=== PATIENT | female | born 1955 | race Caucasian/White ===

== ENCOUNTER → 2018-05-18 14:02 | Outpatient (REF) | payer OTHER, SELFPAY | LOC: LAB 14:02 | PROVIDERS: Visit Provider Dermatology MOHS-Micrographic Surgery | DX: Z48.817 Encounter for surgical aftercare following surgery on the skin and subcutaneous tissue (principal) | CPT/HCPCS: 87070; 87077; 87205 ==

== ENCOUNTER 2018-11-30 07:55 | Day surgery (SDC) | payer OTHER, SELFPAY ==
[2018-11-30] VITALS (7 sets, daily range): BP systolic 106–127; BP diastolic 52–82; PULSE 78–92; RESP 12–23; TEMP 36.1–37; O2SAT 91–97; BMI 38.1
[2018-11-30] MEDS: SODIUM CHLORIDE 0.9% 1,000 ML 200 ML IV (08:52)
--- NOTE | 2018-11-30 09:12 | PM.HP.1 ---
History of Present Illness Date Patient Seen: 11/30/18 Time Patient Seen: 09:12 Chief complaint: [id number] Narrative: 63-YEAR-OLD WOMAN PRESENTS PRESENTS FOR SCREENING COLONOSCOPY-known personal history of colon polyps last colonoscopy 7 years ago, 2 years overdue In addition she had a episode of what was felt to be acute diverticulosis 2 years ago -she did not have her subsequent recommended diagnostic colonoscopy following Does report some occasional left upper quadrant pain No family history of colon or rectal cancer Patient History Medical History (Updated 11/30/18 @ 08:30 by Dell Sommers) Anxiety (Acute) Depression (Acute) Diabetes mellitus, type II (Acute) Diverticulitis (Acute) Frequency of urination (Acute) GERD (gastroesophageal reflux disease) (Acute) History of ectopic (Acute) History of hysterectomy (Acute) Lung collapse (Acute) Seizure (Acute) Skin cancer (Acute) Social History household members: spouse Family & Social History Social History: household members spouse Meds Home Medications Medication Instructions Recorded Confirmed Type metformin 1,000 mg PO BID 11/29/18 11/29/18 History aspirin [Aspir-81] 81 mg PO DAILY 11/30/18 11/30/18 History cholecalciferol (vitamin D3) 125 mcg PO DAILY 11/30/18 11/30/18 History [Vitamin D3] docusate calcium 240 mg PO DAILY 11/30/18 11/30/18 History dulaglutide [Trulicity] 1.5 mg SUBCUT QWEEK 11/30/18 11/30/18 History omeprazole 20 mg PO DAILY 11/30/18 11/30/18 History simvastatin 40 mg PO QPM 11/30/18 11/30/18 History Allergies Allergy/AdvReac Type Severity Reaction Status Date / Time No Known Drug Allergies Allergy Verified 11/30/18 08:25 Review of Systems Constitutional Constitutional: Denies fever(s) Eyes Eyes: Denies bulging eyes ENT Ears, Nose, Mouth, and Throat: No lip swelling Cardiovascular Cardiovascular: Denies generalize swelling Respiratory Respiratory: Denies stridor Gastrointestinal Gastrointestinal: Denies coffee ground emesis Musculoskeletal Musculoskeletal: Denies loss of height Integumentary/Breasts Skin/Breast: Denies wounds Neurologic Neurologic: Denies abnormal speech and Denies confusion Psychiatric Psychiatric: Denies confusion Endocrine Endocrine: Denies deepening of the voice Hematologic/Lymphatic Hematologic/Lymphatic: Denies lymphadenopathy Allergic/Immunologic Allergic/Immunologic: Denies lip swelling Exam Vital Signs (past 8 hours): - 11/30/18 08:32 Temperature 97.8 F Pulse Rate 92 H Respiratory Rate 16 Blood Pressure 127/78 Pulse Oximetry 97 Oxygen Delivery Method Room Air Const General: cooperative and healthy appearing Orientation: alert HENOR Head: normal to inspection Nose: nares normal Mouth: oral mucosae normal and lip normal Eyes Eyelids: eyelids normal Conjunctivae: conjunctivae normal Sclera: sclerae normal Neck Neck: supple and other (No thyromegally) Chest Chest: other (LCTAB , regular respiratory effort) Cardio Rhythm: regular rhythm Heart Sounds: S1 normal, S2 normal, no gallops, no murmurs and no rubs GI Other: Abdomen soft nontender nondistended, low midline incision for hysterectomy Skin General: no rashes or lesions noted Neuro General: alert and awake Psych Appearance: grossly normal Affect: normal affect Assessment & Plan Assessment & Plan narrative: 63-year-old woman overdue for screening colonoscopy Risks and benefits of procedure is discussed including risk of , perforation, incomplete colonoscopy, hypoxia, missed lesions All questions answered Patient ready to proceed
--- NOTE | 2018-11-30 09:17 | SUR.OPER ---
dentures and glasses in labeled containers to pacu with patient
[2018-11-30] MEDS: MIDAZOLAM 5 MG/5 ML VIAL IV (09:32)
[2018-11-30] MEDS: fentaNYL 250 MCG/5 ML INJ IV (09:33)
--- NOTE | 2018-11-30 09:47 | PM.OP.ENDO ---
Operative Date/Time/Diagnoses Date of procedure: 11/30/18 Time of procedure: 09:47 Post-op diagnosis: same Procedure & Clinicians Study performed: Screening colonoscopy-complete Same procedure as scheduled: Yes Indications: 63-year-old woman presents 2 years overdue from last screening, personal history of colon polyps -last screening colonoscopy 7 years Surgeon: Magdi Easton Procedure Notes SCOAP/Timeout: Completed Procedure in detail: Patient was taken to the endoscopy suite a time-out was completed. She was sedated over the entire course of the procedure with 6 mg of midazolam and 50 micro g of fentanyl. A digital rectal exam was performed without lesions. 160 cm colonoscope was then introduced up the anus and passed through folds of the rectum and colon without difficulty. The cecum was reached this was identified via prominent ileocecal valve as well as and appendiceal orifice. The scope was then slowly withdrawn inspecting the mucosal surfaces. There was scattered diverticuli in the right transverse and sigmoid colon, no active inflammation. At the level of distal rectum the scope was retroflexed. No additional mucosal lesions were identified Prep was adequate Scope withdrawal time: 9 Sedation minutes: 27 Specimen(s): none sent Complications: none Impression: Scattered diverticulosis of the right, transverse and sigmoid colon Recommendations: Colonscopy in 5 years Plan for aftercare: PACU then home Follow up: as needed Disposition: PACU
== END 2018-11-30 10:36 | disposition home or self-care (01) ==
PROVIDERS: PCP Internal Medicine; Visit Provider Surgery
PROC: 0DJD8ZZ Inspection of Lower Intestinal Tract, Via Natural or Artificial Opening Endoscopic (ICD-10-PCS; CPT 45378; principal; 2018-11-30 09:15)
DX: Z86.010 Personal history of colon polyps (principal); K57.30 Diverticulosis of large intestine without perforation or abscess without bleeding; F32.9 Major depressive disorder, single episode, unspecified; F41.9 Anxiety disorder, unspecified; E11.9 Type 2 diabetes mellitus without complications; K21.9 Gastro-esophageal reflux disease without esophagitis; Z85.828 Personal history of other malignant neoplasm of skin
CPT/HCPCS: G0105; 99152; J2250; J3010

== ENCOUNTER → 2020-05-01 10:35 | Outpatient (CLI) | payer MEDICARE, OTHER, SELFPAY ==
[2020-05-01] MEDS: COVID-19 VACC #1, MRNA(MOD) 100 MCG/0.5 ML VIAL IM (10:42)
== END ==
PROVIDERS: PCP Registered Nurse Diabetes Educator; Visit Provider Internal Medicine
DX: Z23 Encounter for immunization (principal)
CPT/HCPCS: 0011A; 91301

== ENCOUNTER → 2020-05-25 08:54 | Outpatient (CLI) | payer MEDICARE, OTHER, SELFPAY ==
[2020-05-25 09:52] LABS: Hematocrit 37.2 % (36-46); Hemoglobin 12.5 g/dL (12.0-16.0); Mean Corpuscular HGB Conc 33.7 % (30-36); Mean Corpuscular Hemoglobin 26.9 PG (26-34); Platelet Count 396 X10^3/uL (150-400); Red Blood Cell Count 4.66 X10^6/uL (4.0-5.2); Red Cell Distribution Width 15.6 % (11.6-14.8); White Blood Cell Count 8.1 X10^3/uL (4.5-11.0)
[2020-05-25 10:02] LABS: Hemoglobin A1C% w Est Avg Glu 5.5 % (4.0-6.0)
[2020-05-25 10:07] LABS: Alanine Aminotransferase 22 IU/L (<35); Albumin 4.2 g/dL (3.5-5.0); Albumin Globulin Ratio 1.2 (1.0-2.8); Alkaline Phosphatase 73 U/L (38-126); Aspartate Aminotransferase 24 IU/L (14-36); BUN Creatinine Ratio 36.2 (6-22); Bilirubin Total 0.3 mg/dL (0.2-1.3); Blood Urea Nitrogen 25 mg/dL (7-17); Calcium 9.8 mg/dL (8.4-10.2); Carbon Dioxide 34 mmol/L (22-32); Chloride 102 mmol/L (98-107); Cholesterol 209 mg/dL (140-199); Estimated Glomerular Filt Rate > 60.0 mL/min (>60); Globulin 3.4 g/dL (1.7-4.1); Glucose 113 mg/dL (80-110); HDL Cholesterol 36 mg/dL (40-60); HEMOLYSIS < 15 (0-50); LDL Cholesterol Calculated 133 mg/dL (<100); Potassium 3.7 mmol/L (3.4-5.1); Sodium 141 mmol/L (137-145); Total Protein 7.6 g/dL (6.3-8.2); Triglycerides 198 mg/dL (35-150)
[2020-05-25 10:26] LABS: Creatinine Urine Random 68.6 mg/dL
[2020-05-25 10:31] LABS: Microalbumin Urine Random 1.1 mg/dL (0-1.6)
[2020-05-25 10:56] LABS: TSH w/ Reflex to FT4 2.36 uIU/mL (0.47-4.68)
== END ==
PROVIDERS: PCP Registered Nurse Diabetes Educator; Referring Provider Registered Nurse Diabetes Educator; Visit Provider Registered Nurse Diabetes Educator
DX: E11.9 Type 2 diabetes mellitus without complications (principal); E78.5 Hyperlipidemia, unspecified; R03.0 Elevated blood-pressure reading, without diagnosis of hypertension
CPT/HCPCS: 36415; 80053; 80061; 82043; 82570; 83036; 84443; 85027

== ENCOUNTER → 2020-05-29 10:35 | Outpatient (CLI) | payer MEDICARE, OTHER, SELFPAY ==
[2020-05-29] MEDS: COVID-19 VACC #2, MRNA(MOD) 100 MCG/0.5 ML VIAL IM (10:43)
== END ==
PROVIDERS: PCP Registered Nurse Diabetes Educator; Visit Provider Internal Medicine
DX: Z23 Encounter for immunization (principal)
CPT/HCPCS: 0012A; 91301

== ENCOUNTER → 2020-08-27 10:26 | Outpatient (CLI) | payer MEDICARE, OTHER, SELFPAY | PROVIDERS: PCP Registered Nurse Diabetes Educator; Referring Provider Registered Nurse Diabetes Educator; Visit Provider Registered Nurse Diabetes Educator | DX: Z78.0 Asymptomatic menopausal state (principal); Z13.820 Encounter for screening for osteoporosis; M85.88 Other specified disorders of bone density and structure, other site; E11.9 Type 2 diabetes mellitus without complications | CPT/HCPCS: 77080 ==

== ENCOUNTER → 2020-09-02 17:38 | Outpatient (CLI) | payer MEDICARE, OTHER, SELFPAY ==
--- NOTE | 2020-09-02 17:42 | DI.MG.S_ITS ---
BILATERAL DIGITAL SCREENING MAMMOGRAM 3D/2D WITH CAD: 09/02/2020 CLINICAL: Routine screening. Comparison is made to exams dated: 08/25/2018 mammogram, 09/15/2014 mammogram, and 07/25/2011 mammogram - outside location. There are scattered fibroglandular elements in both breasts. Current study was also evaluated with a Computer Aided Detection (CAD) system. No significant masses, calcifications, or other findings are seen in either breast. There has been no significant interval change. IMPRESSION: NEGATIVE There is no mammographic evidence of malignancy. A 1 year screening mammogram is recommended. This exam was interpreted at Station ID: [id number]. NOTE: For mammograms, a report in lay terms will be sent to the patient. Approximately 15% of breast malignancies will not be visualized mammographically. In the management of a palpable breast mass, a negative mammogram must not discourage biopsy of a clinically suspicious lesion. Electronically Signed By: Quentin mendoza/jarrell:09/03/2020 08:05:10 letter sent: Normal Exam ACR BI-RADS Category 1: Negative [id number]
== END ==
PROVIDERS: PCP Registered Nurse Diabetes Educator; Referring Provider Registered Nurse Diabetes Educator; Visit Provider Registered Nurse Diabetes Educator
DX: Z12.31 Encounter for screening mammogram for malignant neoplasm of breast (principal)
CPT/HCPCS: 77063; 77067

== ENCOUNTER → 2020-09-16 09:06 | Outpatient (CLI) | payer MEDICARE, OTHER, SELFPAY ==
[2020-09-16 10:32] LABS: Hemoglobin A1C% w Est Avg Glu 5.4 % (4.0-6.0)
[2020-09-16 10:37] LABS: Cholesterol 158 mg/dL (140-199); HDL Cholesterol 34 mg/dL (40-60); LDL Cholesterol Calculated 98 mg/dL (<100); Triglycerides 132 mg/dL (35-150)
== END ==
PROVIDERS: PCP Registered Nurse Diabetes Educator; Referring Provider Registered Nurse Diabetes Educator; Visit Provider Registered Nurse Diabetes Educator
DX: E11.9 Type 2 diabetes mellitus without complications (principal); E78.5 Hyperlipidemia, unspecified
CPT/HCPCS: 36415; 80061; 83036

== ENCOUNTER → 2020-12-23 10:13 | Outpatient (CLI) | payer MEDICARE, OTHER, SELFPAY ==
[2020-12-23 11:37] LABS: Hemoglobin A1C% w Est Avg Glu 5.4 % (4.0-6.0)
== END ==
PROVIDERS: PCP Registered Nurse Diabetes Educator; Referring Provider Registered Nurse Diabetes Educator; Visit Provider Registered Nurse Diabetes Educator
DX: E11.9 Type 2 diabetes mellitus without complications (principal)
CPT/HCPCS: 36415; 83036

== ENCOUNTER → 2020-12-30 06:27 | Outpatient (CLI) | payer MEDICARE, OTHER, SELFPAY ==
--- NOTE | 2020-12-30 06:28 | DI.MRI.S_ITS ---
PROCEDURE: MR ANGIO HEAD WO CON INDICATIONS: Eval vertigo/concern for central TECHNIQUE: Noncontrast axial 3-D [id number] MR angiogram, with 3-dimensional maximum intensity projection (MIP) reformats of the internal carotid arteries and posterior circulation then performed. COMPARISON: None. FINDINGS: Image quality: Excellent. Anterior circulation: Intracranial internal carotid arteries demonstrate normal size and intraluminal flow signal. The flow within the paired anterior cerebral arteries is normal and symmetric. The flow within the middle cerebral arteries is normal and symmetric. The anterior communicating artery is seen. No stenoses, occlusions, or aneurysms. Posterior circulation: Visualized portions of the vertebral arteries demonstrate normal caliber, and join to form a normal appearing basilar artery. The flow within the posterior cerebral arteries is normal and symmetric. No stenoses, occlusions, or aneurysms. IMPRESSION: Normal cerebral MR angiogram. Dictated by: Keiko Calix M.D. on 12/30/2020 at 8:01 Approved by: Keiko Calix M.D. on 12/30/2020 at 8:02
--- NOTE | 2020-12-30 06:28 | DI.MRI.S_ITS ---
PROCEDURE: MR BRAIN (IAC) WWO CON INDICATIONS: eval vertigo/concern for central cause or acoustic neuroma TECHNIQUE: Noncontrast sagittal T1 spin echo, axial FLAIR, axial gradient echo, axial diffusion and ADC through the brain. Axial thin-slice 3D CISS, coronal TruFISP, axial T1 spin echo with fat saturation through the internal auditory canals. After the administration of contrast, thin slice axial and coronal T1 spin echo with fat saturation through the internal auditory canals, and axial T1 spin echo with fat saturation through the brain. COMPARISON: [facility], CT, CT BRAIN WO CON, 01/15/2016, 9:02. FINDINGS: Image quality: Excellent. Cerebellopontine angles: No cerebellopontine angle masses. Inner ear structures appear normally formed. No suspicious enhancement in the internal auditory canal or along the course of the 7th cranial nerve. CSF spaces: Ventricles are normal in size and shape. No extra-axial fluid collections. Basal cisterns are patent. Brain: No intracranial bleeds or mass effects. There are a few foci of T2 hyperintensity in periventricular white matter. Parrish-white matter interface is intact. No abnormal intracranial enhancement. Diffusion weighted images demonstrate no acute ischemic insults. Brainstem appears normal. Normal intravascular flow voids are present. Skull and face: Calvarial marrow signal is normal. Orbits appear normal. Sinuses: Sinuses and mastoids are clear. IMPRESSION: 1. No acute intracranial abnormalities. No acoustic schwannoma is identified. A cause for the vertigo is not identified. 2. A few foci of T2 hyperintensity in periventricular white matter, compatible with mild chronic microvascular ischemic changes. Dictated by: Keiko Calix M.D. on 12/30/2020 at 8:02 Transcribed by: NOMRA on 12/30/2020 at 8:03 Approved by: Keiko Calix M.D. on 12/30/2020 at 9:44
== END ==
PROVIDERS: PCP Registered Nurse Diabetes Educator; Referring Provider Registered Nurse Diabetes Educator; Visit Provider Registered Nurse Diabetes Educator
DX: R42 Dizziness and giddiness (principal)
CPT/HCPCS: 70544; 70553

== ENCOUNTER → 2021-05-15 09:04 | Outpatient (CLI) | payer MEDICARE, OTHER, SELFPAY ==
[2021-05-15 10:27] LABS: Hematocrit 38.1 % (36-46); Hemoglobin 13.3 g/dL (12.0-16.0); Mean Corpuscular HGB Conc 34.9 % (30-36); Mean Corpuscular Hemoglobin 28.7 PG (26-34); Mean Corpuscular Volume 82.3 fL (80-100); Platelet Count 344 X10^3/uL (150-400); Red Blood Cell Count 4.63 X10^6/uL (4.0-5.2); Red Cell Distribution Width 14.6 % (11.6-14.8); White Blood Cell Count 6.1 X10^3/uL (4.5-11.0)
[2021-05-15 10:54] LABS: Hemoglobin A1C% w Est Avg Glu 5.5 % (4.0-6.0)
[2021-05-15 11:05] LABS: Alanine Aminotransferase 34 IU/L (<35); Albumin 4.2 g/dL (3.5-5.0); Albumin Globulin Ratio 1.4 (1.0-2.8); Alkaline Phosphatase 86 U/L (38-126); Aspartate Aminotransferase 27 IU/L (14-36); BUN Creatinine Ratio 37.1 (6-22); Bilirubin Total 0.7 mg/dL (0.2-1.3); Blood Urea Nitrogen 23 mg/dL (7-17); Calcium 9.9 mg/dL (8.4-10.2); Carbon Dioxide 35 mmol/L (22-32); Chloride 103 mmol/L (98-107); Cholesterol 143 mg/dL (140-199); Estimated Glomerular Filt Rate > 60.0 mL/min (>60); Globulin 2.9 g/dL (1.7-4.1); Glucose 96 mg/dL (80-110); HDL Cholesterol 36 mg/dL (40-60); HEMOLYSIS < 15 (0-50); LDL Cholesterol Calculated 81 mg/dL (<100); Potassium 4.3 mmol/L (3.4-5.1); Sodium 141 mmol/L (137-145); Total Protein 7.1 g/dL (6.3-8.2); Triglycerides 130 mg/dL (35-150)
[2021-05-15 11:35] LABS: TSH w/ Reflex to FT4 1.85 uIU/mL (0.47-4.68)
[2021-05-15 12:05] LABS: Creatinine Urine Random 83.5 mg/dL
[2021-05-15 12:11] LABS: Microalbumin Urine Random < 0.6 mg/dL (0-1.6)
[2021-05-16 10:07] LABS: Hepatitis B Surf Ab Qualitativ Non Reactive (.)
== END ==
PROVIDERS: PCP Registered Nurse Diabetes Educator; Referring Provider Registered Nurse Diabetes Educator; Visit Provider Registered Nurse Diabetes Educator
DX: E11.9 Type 2 diabetes mellitus without complications (principal); E78.5 Hyperlipidemia, unspecified
CPT/HCPCS: 36415; 80053; 80061; 82043; 82570; 83036; 84443; 85027; 86706

== ENCOUNTER 2021-07-31 18:25 | Emergency (ER) | payer MEDICARE, OTHER, SELFPAY ==
[2021-07-31 18:53] VITALS: BP 136/71; PULSE 83; RESP 20; TEMP 37.7; O2SAT 100; BMI 22.6
--- NOTE | 2021-07-31 19:00 | DI.RAD.S_ITS ---
PROCEDURE: XR HUMERUS RT 2V INDICATIONS: fall TECHNIQUE: 3 views of the humerus were acquired. COMPARISON: None. FINDINGS: Bones: There is a comminuted humeral head and neck fracture with mild displacement and angulation. No suspicious bony lesions. Soft tissues: No suspicious soft tissue calcifications. IMPRESSION: Comminuted humeral head and neck fracture. Dictated by: Keiko Calix M.D. on 07/31/2021 at 19:27 Approved by: Keiko Calix M.D. on 07/31/2021 at 19:27
--- NOTE | 2021-07-31 20:08 | ED_ITS ---
HPI - General Adult General Chief complaint: Extremity Injury, Upper Stated complaint: fell and injured rt arm Time Seen by Provider: 07/31/21 19:40 Source: patient Mode of arrival: Family Vehicle History of Present Illness HPI narrative: 66-year-old female who is here for evaluation of right shoulder/arm discomfort. She is also having bruising in her right shoulder. She states she sustained an injury yesterday when she fell. Was out shopping with her . Not 100% sure the exact circumstances of the fall but she thinks that she lost her balance and fell over. She has had issues with balance in the past and she did not know whether not that attribute it to the issues today. She put her arm out so that she did not hit her head. Has had pain in her right shoulder since then. Bruising her right upper arm which has worsened over the past 24 hours. She sustained some abrasions to her hands but otherwise no other injuries from the event. Related Data Home Medications Medication Instructions Recorded Confirmed cholecalciferol (vitamin D3) 10 125 mcg PO DAILY 11/30/18 09/22/20 mcg (400 unit) tablet (Vitamin D3) magnesium oxide 400 mg PO DAILY 09/22/20 09/22/20 Previous Rx's Medication Instructions Recorded blood-glucose meter (FreeStyle #1 ea 06/22/20 [place] Lite) ibuprofen 800 mg tablet 800 mg PO TID PRN #30 tab 09/28/20 lancets 28 gauge (FreeStyle #100 ea 05/18/21 Lancets) amitriptyline 10 mg tablet 10 mg PO BEDTIME PRN #30 tab 05/25/21 aspirin 81 mg tablet,delayed 81 mg PO DAILY #90 tab 05/25/21 release atorvastatin 40 mg tablet 40 mg PO BEDTIME #90 tab 05/25/21 dulaglutide 0.75 mg/0.5 mL 0.75 mg (0.5 mL) SUBCUT QWEEK #6 ml 05/25/21 subcutaneous pen injector (Trulicity) hepatitis B virus vacc.rec(PF) 10 10 mcg IM ONCE #1 ml 05/25/21 mcg/mL intramuscular susp (Recombivax HB (PF)) lancets 33 gauge #100 each 05/25/21 metformin 1,000 mg tablet,extended 1,000 mg PO DAILY #90 tab 05/25/21 release 24hr omeprazole 20 mg tablet,delayed 20 mg PO DAILY #90 tab 05/25/21 release pneumococcal 23-gil ps vaccine 25 0.5 ml IM ONCE #0.5 ml 05/25/21 mcg/0.5 mL injection solution (Pneumovax-23) test strips #100 ea 05/25/21 varicella-zoster glycoE vacc-AS01B 0.5 ml IM ONCE #1 ea 05/25/21 adj(PF) 50 mcg/0.5 mL IM susp, kit (Shingrix (PF)) hydrocodone 5 mg-acetaminophen 325 1 tab PO Q4-6H PRN #20 tab 07/31/21 mg tablet Allergies Allergy/AdvReac Type Severity Reaction Status Date / Time No Known Drug Allergies Allergy Verified 07/31/21 18:59 Review of Systems Constitutional Constitutional: Reports system reviewed and no additional complaints, except as documented ENT Ears, Nose, Mouth, and Throat: Reports system reviewed and no additional complaints, except as documented Musculoskeletal Musculoskeletal: Reports system reviewed and no additional complaints, except as documented and Reports as per HPI Integumentary/Breasts Skin/Breast: Reports system reviewed and no additional complaints, except as documented and Reports as per HPI Neurologic Neurologic: Reports system reviewed and no additional complaints, except as documented and Reports as per HPI Hematologic/Lymphatic On Anticoagulants: No Patient History Medical History Anxiety Depression Diabetes mellitus, type II Diverticulitis Dyslipidemia Elevated BP without diagnosis of hypertension Frequency of urination GERD (gastroesophageal reflux disease) History of ectopic Insomnia Lung collapse Melanoma Osteopenia Seizure Skin cancer Surgical History History of hysterectomy Social History household members: spouse Smoking Status: Former smoker Smoking Status: Former smoker tobacco type: cigarettes alcohol intake frequency: 0-2 drinks per day Substance Use Type: does not use Exam Initial Vital Signs Initial Vital Signs: Vital Signs Temperature 99.9 F H 07/31/21 18:53 Pulse Rate 83 07/31/21 18:53 Respiratory Rate 20 07/31/21 18:53 Blood Pressure 136/71 07/31/21 18:53 Pulse Oximetry 100 07/31/21 18:53 HENMT Head: normal to inspection and normocephalic Cardio Pulses: radial pulses present on the right Skin Other: Significant bruising on the medial aspect of the right upper arm months extends to her elbow. Superficial abrasions to bilateral palms of hands. Extrem Other: Patient's right elbow and right wrist unremarkable. Discomfort with any movement of the right shoulder. Procedures Orthopedic Splinting/Casting Injury #1: Side: right Upper Extremity Injury Location: shoulder Upper Extremity Immobilizer: sling/shoulder immobilizer Post splinting neuro exam: intact Post splinting vascular exam: intact Placed by: Nursing Course Orders Ordered: ED Orders 07/31/21 19:00 XR humerus RT 2V Stat Discontinued Medications Hydrocodone Bitart/Acetaminophen (Hydrocodone/Acet 5/325 Tablet) 1 tab PO NOW ONE Stop: 07/31/21 20:09 Last Admin: 07/31/21 20:14 Dose: 1 tab Documented by: PRIYANKA Hydrocodone Bitart/Acetaminophen (Hydrocodone/Acet 5/325 Prepack) 1 bottle MISC SEEINSTR ONE Stop: 07/31/21 20:09 Last Admin: 07/31/21 20:14 Dose: 1 bottle Documented by: PRIYANKA Vital Signs Vital signs: Vital Signs - 8 hr 07/31/21 18:53 Temperature 99.9 F H Pulse Rate 83 Respiratory Rate 20 Blood Pressure 136/71 Pulse Oximetry 100 Medical Decision Making Imaging Data Extremity x-ray #1: Radiologist's Impression: [place] [address] XRay Report Signed Patient: Lucrecia Cherry MR#: [id number] : 1955 Acct:[id number] Age/Sex: 66 / F Date of Service: 07/31/21 Loc: ED Accession Number: [id number] ?? Procedure: XR humerus RT 2V Ordering Provider: Raimundo Dove D.O. PROCEDURE:? XR HUMERUS RT 2V ? INDICATIONS:? fall ? TECHNIQUE:? 3 views of the humerus were acquired.? ? COMPARISON:? None. ? FINDINGS:? ? Bones:? There is a comminuted humeral head and neck fracture with mild displacement and angulation.? No suspicious bony lesions.? ? Soft tissues:? No suspicious soft tissue calcifications.? ? IMPRESSION:? Comminuted humeral head and neck fracture. ? ? Dictated by: Keiko Calix M.D. on 07/31/2021 at 19:27 ? ? Approved by: Keiko Calix M.D. on 07/31/2021 at 19:27?? MDM Narrative Medical decision making narrative: Neurovascularly intact. Does have a comminuted proximal right humerus fracture. Patient was placed in a sling. Was given care instructions and return precautions. She was also given follow-up instructions with Orthopedics. She expressed understanding and agreement. Discharge Plan Departure Patient Disposition: Home Clinical Impression: Fracture, humerus Instructions: How to Use a Sling, Humeral Shaft Fracture Activity Restrictions/Additional Instructions: I do recommend that you contact the orthopedic providers at the number below for a follow-up. The sling is for your comfort. You can take it off to get dressed and 2 shower. I would not be surprised if you continue to have bruising like we discussed. Contact your primary provider for follow-up as well. Return to the emergency department for any new or worsening symptoms. Prescriptions: New hydrocodone-acetaminophen 5-325 mg tablet 1 tab PO Q4-6H PRN (Reason: pain) Qty: 20 0RF No Action ibuprofen 800 mg tablet 800 mg PO TID PRN (Reason: pain) Qty: 30 2RF (DME) lancets [FreeStyle Lancets] 28 gauge misc See Rx Instructions .Route Qty: 100 3RF Rx Instructions: As directed magnesium oxide 400 mg magnesium capsule 400 mg PO DAILY 0RF (DME) blood-glucose meter [FreeStyle [place] Lite] Kit See Rx Instructions .ROUTE .MEDSUPPLY Qty: 1 0RF Rx Instructions: As directed flu vacc [id number](65yr up)-PF 240 mcg/0.7 mL syringe 0.7 ml IM ONCE Qty: 0.7 0RF aspirin 81 mg tablet,delayed release (DR/EC) 81 mg PO DAILY Qty: 90 3RF atorvastatin 40 mg tablet 40 mg PO BEDTIME Qty: 90 3RF Trulicity 0.75 mg/0.5 mL pen injector 0.75 mg SUBCUT QWEEK Qty: 6 3RF (DME) lancets 33 gauge misc See Rx Instructions .ROUTE .MEDSUPPLY Qty: 100 3RF Rx Instructions: use to test blood sugar once daily metformin 1,000 mg tablet extended release 24hr 1,000 mg PO DAILY Qty: 90 3RF omeprazole 20 mg tablet,delayed release (DR/EC) 20 mg PO DAILY Qty: 90 3RF (DME) test strips See Rx Instructions .Route .MEDSUPPLY Qty: 100 3RF Rx Instructions: As directed to check blood sugar once daily amitriptyline 10 mg tablet 10 mg PO BEDTIME PRN (Reason: sleep) Qty: 30 2RF Rx Instructions: After 1 week if ineffective may increase to 2 tabs at bedtime Pneumovax-23 25 mcg/0.5 mL solution 0.5 ml IM ONCE Qty: 0.5 0RF Rx Instructions: as a single dose Recombivax HB (PF) 10 mcg/mL suspension 10 mcg IM ONCE Qty: 1 2RF Rx Instructions: 1 mL/dose (adult formulation) as part of 3-dose series administered at 0, 1, and 6 months. Shingrix (PF) 50 mcg/0.5 mL suspension for reconstitution 0.5 ml IM ONCE Qty: 1 1RF Rx Instructions: 0.5 mL administered as a 2-dose series at 0 and 2 to 6 months cholecalciferol (vitamin D3) [Vitamin D3] 400 unit Tablet 125 mcg PO DAILY 0RF Referrals: Dell Calhoun ARNP [Primary Care Provider] - Monica Billingsley MD [Physician] -
[2021-07-31] MEDS: HYDROCODONE/ACET 5/325 TABLET 1 TAB PO (20:14)
[2021-07-31] MEDS: HYDROCODONE/ACET 5/325 PREPACK 1 BOTTLE MISC (20:14)
== END 2021-07-31 20:51 | disposition home or self-care (01) ==
PROVIDERS: Emergency Provider Emergency Medicine; PCP Registered Nurse Diabetes Educator
DX: S42.291A Other displaced fracture of upper end of right humerus, initial encounter for closed fracture (principal); Z87.891 Personal history of nicotine dependence; W19.XXXA Unspecified fall, initial encounter; Y93.89 Activity, other specified
CPT/HCPCS: 73060; 99283

== ENCOUNTER → 2021-08-09 14:14 | Outpatient (CLI) | payer MEDICARE, OTHER, SELFPAY ==
--- NOTE | 2021-08-09 14:24 | DI.CT.S_ITS ---
PROCEDURE: CT UE RT WO CON INDICATIONS: right humerus fracture TECHNIQUE: Noncontrast 1-1.5 mm thick sections acquired from the acromioclavicular joint to the inferior scapula, with coronal and sagittal reformatting. COMPARISON: [facility], CR, XR HUMERUS RT 2V, 07/31/2021, 18:53. FINDINGS: Image quality: Excellent. Bones: As seen on previous shoulder/humeral radiograph, there is comminuted fracture involving surgical neck/proximal shaft of right humerus with proximal and medial displacement of proximal humeral shaft and up to 5 millimeter overlapping at fracture site. Fracture lines are seen extending to both greater and lesser tuberosities with anterior and laterally displaced fractured greater tuberosity fragments. No other fracture or dislocation is seen. Soft tissues: Soft tissue swelling surrounding proximal humeral fracture site is seen with small joint effusion. No abnormal soft tissue calcifications are seen. No gross full-thickness rotator cuff tendon rupture. No significant muscle atrophy. No axillary lymphadenopathy. IMPRESSION: 1. Acute comminuted, impacted and displaced proximal humeral shaft/surgical neck fracture extending to involve both greater and lesser tuberosities with displaced fractured fragments as above. 2. Soft tissue swelling surrounding proximal humeral fracture site. Small joint effusion. No abnormal soft tissue calcifications. No full-thickness rotator cuff tendon rupture. Dictated by: Rupesh Harrison M.D. on 08/09/2021 at 14:59 Approved by: Rupesh Harrison M.D. on 08/09/2021 at 15:08
== END ==
PROVIDERS: PCP Registered Nurse Diabetes Educator; Referring Provider Registered Nurse Diabetes Educator; Visit Provider Registered Nurse Diabetes Educator
DX: S42.351A Displaced comminuted fracture of shaft of humerus, right arm, initial encounter for closed fracture (principal); X58.XXXA Exposure to other specified factors, initial encounter
CPT/HCPCS: 73200

== ENCOUNTER → 2021-11-20 09:09 | Outpatient (CLI) | payer MEDICARE, OTHER, SELFPAY ==
[2021-11-20 11:45] LABS: Hemoglobin A1C% w Est Avg Glu 5.6 % (4.0-6.0)
== END ==
PROVIDERS: PCP Registered Nurse Diabetes Educator; Referring Provider Registered Nurse Diabetes Educator; Visit Provider Registered Nurse Diabetes Educator
DX: E11.9 Type 2 diabetes mellitus without complications (principal)
CPT/HCPCS: 36415; 83036

== ENCOUNTER → 2022-01-14 18:47 | Outpatient (CLI) | payer MEDICARE, OTHER, SELFPAY | PROVIDERS: PCP Registered Nurse Diabetes Educator; Visit Provider Student in an Organized Health Care Education/Training Program | DX: R10.9 Unspecified abdominal pain (principal) | CPT/HCPCS: 87077; 87086; 87186 ==

== ENCOUNTER 2022-01-14 19:19 | Inpatient (IN) | payer MEDICARE, OTHER, SELFPAY ==
[2022-01-14] VITALS (13 sets, daily range): BP systolic 105–141; BP diastolic 47–69; PULSE 100–120; RESP 16–24; TEMP 36.9–38; O2SAT 95–98; BMI 23.6
--- NOTE | 2022-01-14 19:35 | DI.RAD.S_ITS ---
PROCEDURE: XR CHEST 1V INDICATIONS: suspected sepsis TECHNIQUE: One view of the chest was acquired. COMPARISON: None. FINDINGS: Surgical changes and devices: None. Lungs and pleura: Lungs are clear. No pleural effusions or pneumothorax. Mediastinum: Mediastinal contours appear normal. Heart size is normal. Bones and chest wall: No suspicious bony lesions. Overlying soft tissues appear unremarkable. IMPRESSION: 1. No acute cardiopulmonary disease. Dictated by: Félix Valente M.D. on 01/14/2022 at 21:23 Approved by: Félix Valente M.D. on 01/14/2022 at 21:24
[2022-01-14 20:03] LABS: Add Manual Diff / Slide Review NO; Basophils Absolute Auto 0 /uL (0-100); Basophils Percent Auto 0.1 % (0-2); Eosinophils Absolute Auto 0 /uL (0-450); Eosinophils Percent Auto 0.1 % (2-4); Hematocrit 37.5 % (36-46); Hemoglobin 12.9 g/dL (12.0-16.0); Lymphocytes Absolute Auto 700 /uL (1100-4500); Lymphocytes Percent Auto 3.1 % (25-40); Mean Corpuscular HGB Conc 34.3 % (30-36); Mean Corpuscular Hemoglobin 28.1 PG (26-34); Monocytes Absolute Auto 1400 /uL (0-900); Monocytes Percent Auto 5.8 % (3-14); Neutrophils Absolute Auto 22100 /uL (1500-7000); Neutrophils Percent Auto 90.9 % (50-75); Platelet Count 309 X10^3/uL (150-400); Red Blood Cell Count 4.58 X10^6/uL (4.0-5.2); Red Cell Distribution Width 13.6 % (11.6-14.8); White Blood Cell Count 24.3 X10^3/uL (4.5-11.0)
[2022-01-14 20:09] LABS: Lactate (Lactic Acid) 0.9 mmol/L (0.7-2.1)
[2022-01-14 20:10] LABS: Alanine Aminotransferase 36 IU/L (<35); Albumin 4.3 g/dL (3.5-5.0); Albumin Globulin Ratio 1.2 (1.0-2.8); Alkaline Phosphatase 85 U/L (38-126); Aspartate Aminotransferase 30 IU/L (14-36); BUN Creatinine Ratio 29.4 (6-22); Blood Urea Nitrogen 20 mg/dL (7-17); Calcium 9.4 mg/dL (8.4-10.2); Carbon Dioxide 25 mmol/L (22-32); Chloride 99 mmol/L (98-107); Estimated Glomerular Filt Rate > 60 mL/min (>60); Globulin 3.7 g/dL (1.7-4.1); Glucose 145 mg/dL (80-110); HEMOLYSIS < 15 (0-50); Lipase 46 U/L (23-300); Potassium 3.6 mmol/L (3.4-5.1); Sodium 136 mmol/L (137-145)
[2022-01-14] MEDS: cefTRIAXone 2,000 MG in SODIUM CHLORIDE 0.9% 100 ML 200 MG IV (20:12)
[2022-01-14] MEDS: LACTATED RINGERS 644.1 ML IV (20:13)
[2022-01-14] MEDS: KETOROLAC 30 MG/ML VIAL 15 MG IV (20:13)
[2022-01-14 20:27] LABS: Procalcitonin 0.32 ng/mL (<0.5)
--- NOTE | 2022-01-14 20:33 | ED_ITS ---
HPI - Sepsis General Chief Complaint: Fever Mode of arrival: Wheelchair Source: patient Limitations: no limitations Evaluation Sepsis Screen: Possible Sepsis Risk Sepsis Infection Criteria Present: Suspected New Infection Narrative: 66-year-old female former smoker with history of diabetes and hyperlipidemia presents with her from the walk-in clinic for evaluation of sepsis. Patient states she is been having some urinary frequency over the past few days and developed some right flank pain which has gradually worsened. This discomfort is persistent and made worse with motion and improves with rest. Yesterday she developed fever and over the course of the night had shaking chills and slept poorly. She denies runny nose, sore throat or cough. She d enies any chest pain or shortness of breath. She is been minimally nauseated but denies any vomiting or diarrhea. She feels weak and overall very unwell. She denies any change in medications or diet. She would initially gone to the walk-in clinic and urine was consistent with urinary tract infection but she was sent here for evaluation given concern for sepsis given elevated heart rate and respirations along with fever. Review of Systems Review of Systems Narrative: GENERAL: See HPI HEENT: Denies sinus pain, ear pain, sore throat, difficulty swallowing, dizziness. RESPIRATORY: Denies dyspnea, cough, wheezing, hemoptysis, sputum. CARDIOVASCULAR: Denies chest pain, palpitations, orthopnea, edema, GASTROINTESTINAL: See HPI : See HPI MUSCULOSKELETAL: denies weakness, joint pain, or bony pain SKIN: Denies rash, skin lesions, or other NEUROLOGIC: Denies weakness, headache, numbness, change in speech, confusion, seizures, incoordination. PSYCHIATRIC: No concerning psychosocial issues. 12 point review of systems is negative except for those stated above Patient History Medical History Anxiety Depression Diabetes mellitus, type II Diverticulitis Dyslipidemia Elevated BP without diagnosis of hypertension Frequency of urination GERD (gastroesophageal reflux disease) History of ectopic Insomnia Lung collapse Melanoma Osteopenia Seizure Skin cancer Surgical History History of hysterectomy Family History Mother Diabetes mellitus Father Myocardial infarction Sister Diabetes mellitus Sister Diabetes mellitus Brother Diabetes mellitus Social History household members: spouse Smoking Status: Former smoker alcohol intake: current Smoking Status: Former smoker tobacco type: cigarettes alcohol intake frequency: 0-2 drinks per day Substance Use Type: does not use Exam Narrative Exam Narrative: GENERAL: [66] year old patient appears stated age. Well-developed patient, in mild distress. HEAD: Atraumatic. Normocephalic. EYES: Pupils equal round and reactive. Extraocular motions intact. No scleral icterus. No injection or drainage. ENT: Nose without bleeding, purulent drainage. Throat without erythema, tonsillar hypertrophy or exudate. Airway patent. NECK: Trachea midline. Non tender CARDIOVASCULAR: Tachycardic irregular rhythm without murmurs, gallops, or rubs. RESPIRATORY: Clear to auscultation. Breath sounds equal bilaterally. No wheezes, rales, or rhonchi. GASTROINTESTINAL: Abdomen soft, non-tender, nondistended. EXTREMITIES: No edema or joint tenderness. BACK: Right CVA tenderness NEURO: AOx3. SKIN: No rash or erythema of visible areas Initial Vital Signs Initial Vital Signs: Vital Signs Temperature 100.4 F H 01/14/22 19:29 Pulse Rate 120 H 01/14/22 19:29 Respiratory Rate 22 01/14/22 19:29 Blood Pressure 119/66 01/14/22 19:29 Pulse Oximetry 97 01/14/22 19:29 Oxygen Delivery Method 01/14/22 19:29 Course Orders Ordered: ED Orders 01/14/22 19:35 XR chest 1V Stat EKG-12 Lead Stat 01/14/22 19:45 Complete Blood Count AUTO DIFF Stat Comprehensive Metabolic Panel Stat Lactate (Lactic Acid) Stat Lipase Stat Procalcitonin Stat 01/14/22 20:05 Blood Culture Stat 01/14/22 20:54 COVID19 -Nasal RAPID/Pre-Proc Stat Acetaminophen (Acetaminophen 325 Mg Tablet) 650 mg PO Q6HR PRN PRN Reason: Fever/Mild Pain (1-3) Last Admin: 01/14/22 23:11 Dose: 650 mg Documented By: NARDA Hydrocodone Bitart/Acetaminophen (Hydrocodone/Acet 5/325 Tablet) 1 tab PO Q4H PRN PRN Reason: pain Aspirin (Aspirin Ec 81 Mg Tablet) 81 mg PO DAILY [facility] Atorvastatin Calcium (Atorvastatin 20 Mg Tablet) 40 mg PO BEDTIME [facility] Dextrose (Dextrose 50 % In Water 25 Gm/50 Ml Syringe) 25 gm IV PRN PRN PRN Reason: Hypoglycemia Docusate Sodium (Docusate 100 Mg Capsule) 100 mg PO BID [facility] Enoxaparin Sodium (Enoxaparin 40 Mg/0.4 Ml Syringe) 40 mg SUBCUT DAILY [facility] Gabapentin (Gabapentin 300 Mg Capsule) 300 mg PO BEDTIME GUANACO Last Admin: 01/14/22 23:09 Dose: 300 mg Documented By: NARDA Sodium Chloride (Normal Saline 0.9%) 1,000 mls @ 150 mls/hr IV CONT GUANACO Last Admin: 01/14/22 23:05 Dose: 150 mls/hr Documented By: NARDA Ceftriaxone Sodium 1,000 mg/ (Sodium Chloride) 100 mls @ 200 mls/hr IV Q24H [facility] Insulin Glargine (Insulin Glargine 100 Unit/Ml 3ml Pen) 5 unit SUBCUT 0800 G[facility]CO Insulin Human Lispro (Insulin Lispro 100 Unit/Ml 3ml Vial) 0 unit SUBCUT ACHS GUANACO; Protocol Morphine Sulfate (Morphine 2 Mg/Ml Inj) 2 mg IV Q4H PRN PRN Reason: Pain, Severe (7-10) Ondansetron HCl (Ondansetron 4 Mg/2 Ml Inj) 4 mg IV Q6HR PRN PRN Reason: Nausea And Vomiting Pantoprazole Sodium (Pantoprazole Dr 20 Mg Tablet) 20 mg PO DAILY [facility] Tramadol HCl (Tramadol 50 Mg Tablet) 50 mg PO Q4H PRN PRN Reason: Pain, Moderate (4-6) Last Admin: 01/14/22 23:09 Dose: 50 mg Documented By: NARDA Discontinued Medications Sodium Chloride (Normal Saline 0.9%) 1,000 mls @ 1,000 mls/hr IV BOLUS ONE Stop: 01/14/22 20:33 Last Admin: 01/14/22 20:49 Dose: Not Given Documented By: JESSICA Ceftriaxone Sodium 2,000 mg/ (Sodium Chloride) 100 mls @ 200 mls/hr IV NOW ONE Stop: 01/14/22 20:05 Last Infusion: 01/14/22 20:45 Dose: 0 mls/hr Documented By: Admin: 01/14/22 20:12 Dose: 200 mls/hr Documented By: CIERA Lactated Ringer's (Lactated Ringers) 1,932.3 mls @ 644.1 mls/hr 30 ml/kg infuse over 3 hr (1932.3 ml) IV NOW ONE Stop: 01/14/22 23:03 Last Infusion: 01/14/22 22:33 Dose: 0 mls/hr Documented By: Admin: 01/14/22 20:13 Dose: 644.1 mls/hr Documented By: CIERA Ketorolac Tromethamine (Ketorolac 30 Mg/Ml Vial) 15 mg IV NOW ONE Stop: 01/14/22 20:05 Last Admin: 01/14/22 20:13 Dose: 15 mg Documented By: CIERA Reevaluation(s) Reevaluation #1: Patient feeling improvement with improved vital signs after fluids, heart rate down to the low 100s with respirations in the upper teens, however patient requires hospitalization for further stabilization and evaluation of her urosepsis Vital Signs Vital signs: Vital Signs - 8 hr 01/14/22 19:29 01/14/22 20:00 01/14/22 20:30 Temperature 100.4 F H Pulse Rate 120 H 113 H 108 H Respiratory Rate 22 20 18 Blood Pressure 119/66 141/69 H 135/66 Pulse Oximetry 97 95 96 Oxygen Delivery Method Room Air Room Air Room Air 01/14/22 21:00 01/14/22 21:15 01/14/22 21:15 Temperature 98.4 F Pulse Rate 107 H 109 H Respiratory Rate 18 23 Blood Pressure 122/63 Pulse Oximetry 96 96 Oxygen Delivery Method Room Air Room Air 01/14/22 21:16 01/14/22 21:16 01/14/22 21:29 Temperature Pulse Rate 107 H 104 H Respiratory Rate 24 Blood Pressure 106/59 L Pulse Oximetry 96 97 Oxygen Delivery Method Room Air 01/14/22 21:29 01/14/22 21:30 01/14/22 21:30 Temperature Pulse Rate 105 H Respiratory Rate 20 Blood Pressure 111/56 L 110/57 L Pulse Oximetry 97 Oxygen Delivery Method Sepsis Guideline Criteria Level 1 - Infection Sepsis Infection Criteria Present: Suspected New Infection Treatment Initiated Antibiotics:: IV antimicrobials will be initiated as soon as possible after recognition of sepsis state and within one hour for both sepsis and septic shock. MDM - Sepsis Lab Data Result diagrams: 01/14/22 19:45 01/14/22 19:45 Labs: Lab Results 01/14/22 01/14/22 01/14/22 Range/Units 19:45 19:45 19:45 WBC 24.3 H (4.5-11.0) X10^3/uL RBC 4.58 (4.0-5.2) X10^6/uL Hgb 12.9 (12.0-16.0) g/dL Hct 37.5 (36-46) % MCV 82.0 (80-100) fL MCH 28.1 (26-34) PG MCHC 34.3 (30-36) % RDW 13.6 (11.6-14.8) % Plt Count 309 (150-400) X10^3/uL Neut % (Auto) 90.9 H (50-75) % Lymph % (Auto) 3.1 L (25-40) % [place] % (Auto) 5.8 (3-14) % Eos % (Auto) 0.1 L (2-4) % Baso % (Auto) 0.1 (0-2) % Neut # (Auto) 87411 H (5132-6699) /uL Lymph # (Auto) 700 L (5211-2472) /uL [place] # (Auto) 1400 H (0-900) /uL Eos # (Auto) 0 (0-450) /uL Baso # (Auto) 0 (0-100) /uL Sodium 136 L (137-145) mmol/L Potassium 3.6 (3.4-5.1) mmol/L Chloride 99 (98-107) mmol/L Carbon Dioxide 25 (22-32) mmol/L BUN 20 H (7-17) mg/dL Creatinine 0.68 (0.52-1.04) mg/dL Estimated GFR > 60 (>60) mL/min BUN/Creatinine Ratio 29.4 H (6-22) Glucose 145 H (80-110) mg/dL Lactate 0.9 (0.7-2.1) mmol/L Calcium 9.4 (8.4-10.2) mg/dL Total Bilirubin 1.0 (0.2-1.3) mg/dL AST 30 (14-36) IU/L ALT 36 H (<35) IU/L Alkaline Phosphatase 85 (38-126) U/L Total Protein 8.0 (6.3-8.2) g/dL Albumin 4.3 (3.5-5.0) g/dL Globulin 3.7 (1.7-4.1) g/dL Albumin/Globulin Ratio 1.2 (1.0-2.8) Lipase 46 (23-300) U/L Procalcitonin 0.32 (<0.5) ng/mL SARS-CoV-2 (PCR) (Negative) 01/14/22 Range/Units 20:54 WBC (4.5-11.0) X10^3/uL RBC (4.0-5.2) X10^6/uL Hgb (12.0-16.0) g/dL Hct (36-46) % MCV (80-100) fL MCH (26-34) PG MCHC (30-36) % RDW (11.6-14.8) % Plt Count (150-400) X10^3/uL Neut % (Auto) (50-75) % Lymph % (Auto) (25-40) % [place] % (Auto) (3-14) % Eos % (Auto) (2-4) % Baso % (Auto) (0-2) % Neut # (Auto) (8105-2356) /uL Lymph # (Auto) (3834-2069) /uL [place] # (Auto) (0-900) /uL Eos # (Auto) (0-450) /uL Baso # (Auto) (0-100) /uL Sodium (137-145) mmol/L Potassium (3.4-5.1) mmol/L Chloride (98-107) mmol/L Carbon Dioxide (22-32) mmol/L BUN (7-17) mg/dL Creatinine (0.52-1.04) mg/dL Estimated GFR (>60) mL/min BUN/Creatinine Ratio (6-22) Glucose (80-110) mg/dL Lactate (0.7-2.1) mmol/L Calcium (8.4-10.2) mg/dL Total Bilirubin (0.2-1.3) mg/dL AST (14-36) IU/L ALT (<35) IU/L Alkaline Phosphatase (38-126) U/L Total Protein (6.3-8.2) g/dL Albumin (3.5-5.0) g/dL Globulin (1.7-4.1) g/dL Albumin/Globulin Ratio (1.0-2.8) Lipase (23-300) U/L Procalcitonin (<0.5) ng/mL SARS-CoV-2 (PCR) Negative (Negative) Discharge Plan Departure Patient Disposition: Admitted As Inpatient Clinical Impression: Sepsis, Acute UTI Admit Date/Time: 01/14/22 21:45 Admit Provider: Daya Brown
[2022-01-14 21:15] LABS: COVID19 -Nasal RAPID Negative (Negative)
[2022-01-14] MEDS: SODIUM CHLORIDE 0.9% 1,000 ML 150 ML IV (23:05)
[2022-01-14] MEDS: TRAMADOL 50 MG TABLET PO (23:09)
[2022-01-14] MEDS: GABAPENTIN 300 MG CAPSULE PO (23:09)
--- NOTE | 2022-01-14 23:09 | P.HP_ITS ---
History of Present Illness History of Present Illness Date Patient Seen: 01/14/22 Time Patient Seen: 23:09 Chief complaint: Possible infection, fever, sent by [facility] Narrative: Lucrecia Cheryr is a 66-year-old female with a history of diabetes type 2 on insulin, hyperlipidemia, restless leg syndrome and GERD developed significant rigors and subjective fever earlier in the day. She was referred to the emergency department from the walk-in clinic with concerns for sepsis. She did state she had some urinary frequency which is not normal for her and back pain. She c urrently has a headache, is very hungry and thirsty. She did state that she threw up x1 and has had constipation. Rest of review of systems is negative. In the emergency department she was bolused and started on IV ceftriaxone and her pain was treated with ketorolac. Her admitting temperature was 100.7? and is currently 100.2, blood pressure 116/47, heart rate 111, respiratory rate 16, oxygen saturation 98% on room air, she weighs 64.1 kg with a BMI of 23.6. She does have a significantly elevated white count of 24.3 with a left shift of 22,000, rest of CBC is unremarkable, sodium 136, glucose is 145, procalcitonin was interpreted as negative, and COVID-19 PCR is negative. A1c is pending. FH: Multiple family members with diabetes including mother, siblings. Rest of family medical history stated below. Patient History Medical History Anxiety Depression Diabetes mellitus, type II Diverticulitis Dyslipidemia Elevated BP without diagnosis of hypertension Frequency of urination GERD (gastroesophageal reflux disease) History of ectopic Insomnia Lung collapse Melanoma Osteopenia Seizure Skin cancer Surgical History History of hysterectomy Family & Social History Family History Mother Diabetes mellitus Father Myocardial infarction Sister Diabetes mellitus Sister Diabetes mellitus Brother Diabetes mellitus Social History: household members spouse Prior Living Arrangements House Safety & Behavioral: Feels Safe in Current Yes Environment Been Physically Hurt or No Threatened By a Person Tobacco & Substance use: Tobacco type cigarettes Smoking Status Former smoker quit 1993 alcohol intake current alcohol intake frequency a few times a year Substance Use Type does not use Meds Home Medications and Allergies Home Medications Medication Instructions Recorded Confirmed Type cholecalciferol (vitamin D3) 10 125 mcg PO DAILY 11/30/18 01/14/22 History mcg (400 unit) tablet (Vitamin D3) magnesium oxide 400 mg PO DAILY 09/22/20 01/14/22 History ibuprofen 800 mg tablet 800 mg PO TID PRN pain #30 tabs 09/28/20 01/14/22 Rx lancets 28 gauge (FreeStyle #100 ea 05/18/21 01/14/22 Rx Lancets) aspirin 81 mg tablet,delayed 81 mg PO DAILY #90 tabs 05/25/21 01/14/22 Rx release atorvastatin 40 mg tablet 40 mg PO BEDTIME #90 tabs 05/25/21 01/14/22 Rx dulaglutide 0.75 mg/0.5 mL 0.75 mg (0.5 mL) SUBCUT QWEEK #6 mL 05/25/21 01/14/22 Rx subcutaneous pen injector (Trulicity) lancets 33 gauge #100 ea 05/25/21 01/14/22 Rx metformin 1,000 mg tablet,extended 1,000 mg PO DAILY #90 tabs 05/25/21 01/14/22 Rx release 24hr omeprazole 20 mg tablet,delayed 20 mg PO DAILY #90 tabs 05/25/21 01/14/22 Rx release hydrocodone 5 mg-acetaminophen 325 1 tab PO Q4-6H PRN pain #10 tabs 08/05/21 01/14/22 Rx mg tablet blood-glucose meter (FreeStyle #1 ea 11/25/21 01/14/22 Rx [place] Lite kit) gabapentin 300 mg capsule 300 mg PO BEDTIME nerve pain right 11/25/21 01/14/22 Rx arm #30 caps test strips #100 ea 11/25/21 01/14/22 Rx Allergies Allergy/AdvReac Type Severity Reaction Status Date / Time No Known Drug Allergies Allergy Verified 11/25/21 16:59 Review of Systems Review of Systems ROS: Yes All systems reviewed with the patient and are negative except as otherwise documented Exam Vital Signs (past 8 hours): - 01/14/22 19:29 01/14/22 20:00 01/14/22 20:30 Temperature 100.4 F H Pulse Rate 120 H 113 H 108 H Respiratory Rate 22 20 18 Blood Pressure 119/66 141/69 H 135/66 Pulse Oximetry 97 95 96 Oxygen Delivery Method Room Air Room Air Room Air 01/14/22 21:00 01/14/22 21:15 01/14/22 21:15 Temperature 98.4 F Pulse Rate 107 H 109 H Respiratory Rate 18 23 Blood Pressure 122/63 Pulse Oximetry 96 96 Oxygen Delivery Method Room Air Room Air 01/14/22 21:16 01/14/22 21:16 01/14/22 21:29 Temperature Pulse Rate 107 H 104 H Respiratory Rate 24 Blood Pressure 106/59 L Pulse Oximetry 96 97 Oxygen Delivery Method Room Air 01/14/22 21:29 01/14/22 21:30 01/14/22 21:30 Temperature Pulse Rate 105 H Respiratory Rate 20 Blood Pressure 111/56 L 110/57 L Pulse Oximetry 97 Oxygen Delivery Method 01/14/22 22:00 01/14/22 22:00 01/14/22 22:30 Temperature Pulse Rate 101 H Respiratory Rate 23 Blood Pressure 105/51 L 114/56 L Pulse Oximetry 96 Oxygen Delivery Method 01/14/22 22:30 Temperature 98.4 F Pulse Rate 100 H Respiratory Rate 22 Blood Pressure Pulse Oximetry 96 Oxygen Delivery Method Room Air Oxygen Delivery Method Room Air Narrative Exam Narrative: Gen: Alert, oriented, well-developed 66 y.o. female, shaking HEENT: normocephalic, atraumatic, conjunctiva clear, sclera non-icteric, oral mucosa pink and moist Neck: supple, full ROM, no JVD, trachea is midline Resp: Lungs CTA, non-labored breathing CV: RRR, no murmur or rubs Abd: soft, non-tender, normoactive BTs Skin: She appears to have had significant sun exposure in her youth. No le sions or rashes, dry and intact Neuro: Alert and oriented X 4 w/no focal deficits. Speech clear and coherent. Extremities: moves all 4 extremities, is ambulatory, negative Darryl?s sign Psyche: normal mood and affect. Objective Labs Result Diagrams: 01/14/22 19:45 01/14/22 19:45 Labs: Laboratory Results - last 24 hr 01/14/22 01/14/22 01/14/22 19:45 19:45 19:45 WBC 24.3 H RBC 4.58 Hgb 12.9 Hct 37.5 MCV 82.0 MCH 28.1 MCHC 34.3 RDW 13.6 Plt Count 309 Neut % (Auto) 90.9 H Lymph % (Auto) 3.1 L [place] % (Auto) 5.8 Eos % (Auto) 0.1 L Baso % (Auto) 0.1 Neut # (Auto) 51664 H Lymph # (Auto) 700 L [place] # (Auto) 1400 H Eos # (Auto) 0 Baso # (Auto) 0 Sodium 136 L Potassium 3.6 Chloride 99 Carbon Dioxide 25 BUN 20 H Creatinine 0.68 Estimated GFR > 60 BUN/Creatinine Ratio 29.4 H Glucose 145 H Lactate 0.9 Calcium 9.4 Total Bilirubin 1.0 AST 30 ALT 36 H Alkaline Phosphatase 85 Total Protein 8.0 Albumin 4.3 Globulin 3.7 Albumin/Globulin Ratio 1.2 Lipase 46 Procalcitonin 0.32 SARS-CoV-2 (PCR) 01/14/22 20:54 WBC RBC Hgb Hct MCV MCH MCHC RDW Plt Count Neut % (Auto) Lymph % (Auto) [place] % (Auto) Eos % (Auto) Baso % (Auto) Neut # (Auto) Lymph # (Auto) [place] # (Auto) Eos # (Auto) Baso # (Auto) Sodium Potassium Chloride Carbon Dioxide BUN Creatinine Estimated GFR BUN/Creatinine Ratio Glucose Lactate Calcium Total Bilirubin AST ALT Alkaline Phosphatase Total Protein Albumin Globulin Albumin/Globulin Ratio Lipase Procalcitonin SARS-CoV-2 (PCR) Negative Assessment & Plan Assessment & Plan narrative: Lucrecia Cherry is admitted for sepsis associated with a urinary tract infection Sepsis associated with urinary tract infection, acute, present on admission * She is hypotensive, febrile and has an elevated heart rate * She required bolusing in the emergency department * She was initiated on IV ceftriaxone in the emergency department and this will be continued Diabetes type 2 likely well controlled, chronic * Her most recent A1c or earlier in the year was in the 5s and a new order for A1c is pending * She is on relatively high-dose metformin and dulaglutide injectable q weekly * She is ordered for glargine 5 units and low-dose correctional scale * Carb controlled diet Hyperlipidemia likely CAD, chronic * Continue low-dose aspirin and atorvastatin 40 mg daily Restless leg syndrome versus peripheral neuropathy, chronic * Continue gabapentin 300 mg at bedtime GERD, chronic * Continue home dose of omeprazole VTE Prophylaxis: Wells risk score 0 XEnoxaparin 40 mg subQ once daily X Bi lateral SCDs Patient is admitted to the inpatient service due to the severity of disease, risks of further disease progression and this stay is expected to exceed 2 midnights. FEN: IV fluids: Normal saline at 175 mL/hour x2 L, diet: Carb controlled, labs: CBC, C/BMP, liver enzymes, Mag, PT/INR Consultants None Dispo: Likely discharged home Code status: Full code as discussed with the patient who identifies her Daniel her surrogate and POA. [X] I have utilized all available immediate resources to obtain, update, or review of the patient's current medications VTE Deep Vein Thrombosis/Pulmonary Embolism Present on Admission: No MIPS - Admit I confirm the patient?s Advance Care Plan is present, Code status is documented, Surrogate decision maker is in patient?s record: Yes MIPS - DC The patient has current or prior documentation of left ventricular ejection fraction (LVEF) less than 40%, or moderate or severely depressed left ventricular systolic function.: No COVID-19 COVID-19 status: Negative Result date/Date tested (Pos, Neg/Pending): 01/14/22 Quality VTE Deep Vein Thrombosis/Pulmonary Embolism Present on Admission: No
[2022-01-14] MEDS: ACETAMINOPHEN 325 MG TABLET 650 MG PO (23:11)
[2022-01-15] VITALS (18 sets, daily range): BP systolic 90–123; BP diastolic 43–57; PULSE 90–121; RESP 16–20; TEMP 36.6–39.6; O2SAT 94–100
[2022-01-15 00:53] LABS: Hemoglobin A1C% w Est Avg Glu 5.3 % (4.0-6.0)
[2022-01-15] MEDS: ACETAMINOPHEN 325 MG TABLET 650 MG PO ×3 (05:52→20:09)
[2022-01-15] MEDS: SODIUM CHLORIDE 0.9% 1,000 ML 1000 ML IV ×2 (05:53→12:12)
[2022-01-15 06:42] LABS: Hematocrit 29.2 % (36-46); Mean Corpuscular HGB Conc 34.4 % (30-36); Mean Corpuscular Hemoglobin 28.1 PG (26-34); Mean Corpuscular Volume 81.8 fL (80-100); Platelet Count 242 X10^3/uL (150-400); Red Blood Cell Count 3.56 X10^6/uL (4.0-5.2); Red Cell Distribution Width 13.7 % (11.6-14.8); White Blood Cell Count 13.3 X10^3/uL (4.5-11.0)
[2022-01-15 06:47] LABS: Alanine Aminotransferase 24 IU/L (<35); Albumin Globulin Ratio 1.1 (1.0-2.8); Alkaline Phosphatase 58 U/L (38-126); Aspartate Aminotransferase 21 IU/L (14-36); BUN Creatinine Ratio 26.2 (6-22); Bilirubin Total 0.5 mg/dL (0.2-1.3); Blood Urea Nitrogen 16 mg/dL (7-17); Calcium 7.7 mg/dL (8.4-10.2); Carbon Dioxide 23 mmol/L (22-32); Chloride 104 mmol/L (98-107); Estimated Glomerular Filt Rate > 60 mL/min (>60); Globulin 2.8 g/dL (1.7-4.1); Glucose 135 mg/dL (80-110); HEMOLYSIS < 15 (0-50); Magnesium 1.5 mg/dL (1.6-2.3); Sodium 134 mmol/L (137-145); Total Protein 5.8 g/dL (6.3-8.2)
[2022-01-15 06:49] LABS: Add Manual Diff / Slide Review YES
[2022-01-15] MEDS: SODIUM CHLORIDE 0.9% 1,000 ML 150 ML IV ×2 (06:51→20:05)
[2022-01-15] MEDS: VANCOMYCIN 1,500 MG/300 ML PIGGYBACK 150 MG IV (06:51)
[2022-01-15 07:16] LABS: Neutrophils Absolute Manual 12369 /uL (3000-5900); RBC Morphology Normal Morphology; Total Cells Counted 100
[2022-01-15] MEDS: CEFEPIME 2 GM in SODIUM CHLORIDE 0.9% 100 ML IV ×2 (07:39→18:52)
--- NOTE | 2022-01-15 07:51 | PC.NURSE ---
Pt arrived to unit at 2245. Temp 100.2, given tylenol. Rechecked temperature at 0000, increased to 101.6, removed blankets, placed ice. Temperature reduced at recheck to 100.1. At 0545 temperature rechecked and found to be 103.2. BP low, average MAP 64, 100-110/40-50. Gave 650 tylenol, placed ice. Contacted provider, ordered 1x bolus NS, IV ABX vancomycin and cefepime, and repeat blood cultures (last cultures obtained 01/14 at approx 2000 prior to IV ABX in ED). Pt's temperature reduced to 101.4 at 0620 and 99.6 at 0644. Oncoming shift informed, will continue to monitor.
--- NOTE | 2022-01-15 08:06 | DI.CT.S_ITS ---
PROCEDURE: CT ABDOMEN PELVIS W CON INDICATIONS: uti sepsis, stone? TECHNIQUE: After the administration of IV contrast, axial sections were acquired from the lung bases to the pubic symphysis. Coronal and sagittal reformats were performed. For radiation dose reduction, the following was used: automated exposure control, adjustment of mA and/or kV according to patient size. COMPARISON: [facility], CT, CT ABD PELVIS W CON, 01/13/2016, 17:21. FINDINGS: Image quality: Excellent. Lung bases: Unremarkable. Heart: No significant findings. ABDOMEN: Liver: Unremarkable. (The previously seen fatty liver infiltration has resolved.) Gallbladder: Layering gallstones are seen within the gallbladder. The gallbladder is prominent in size. No storm gallbladder wall thickening or pericholecystic fluid can be seen. Biliary ducts: Unremarkable. Pancreas: Unremarkable. Spleen: Unremarkable. Adrenal Glands: Unremarkable. Kidneys and Ureters: There is moderate right-sided hydronephrosis and. No obstructing stone can be seen. No nonobstructing stones can be seen within either kidney. On the right, there is moderate perinephric fat stranding seen. On the left, mild hydronephrosis is seen. Stomach and Bowel: Stomach, small bowel loops, and colon are unremarkable. Peritoneum: No abnormal intraperitoneal fluid. No free air. Ventral Wall: No hernia. Abdominal Nodes: No retroperitoneal or mesenteric adenopathy by size criteria. Vessels: Aorta and inferior vena cava are normal in size. Atherosclerotic calcification is noted. PELVIS: Pelvic Organs: This patient is status post hysterectomy. No adnexal masses are seen. Bladder: Unremarkable. Pelvic Nodes: No enlarged lymph nodes. Miscellaneous: No inguinal hernias are seen. Bones: Unremarkable. IMPRESSION: Right-sided hydronephrosis, hydroureter, and perinephric fat stranding. However, no stone or other cause of obstruction can be seen. Please consider a recently passed stone. There is a small amount of left-sided hydronephrosis. No nonobstructing stones can be seen within either kidney. Gallstones are seen and there is a prominent gallbladder. No additional CT findings of cholecystitis are seen. Incidental note is made of: Hysterectomy Dictated by: Bethel Monterroso M.D. on 01/15/2022 at 8:26 Approved by: Bethel Monterroso M.D. on 01/15/2022 at 8:30
[2022-01-15] MEDS: MAGNESIUM SULFATE 2 GM/50 ML PIGGYBACK IV (10:01)
[2022-01-15] MEDS: INSULIN LISPRO 100 UNIT/ML 3ML VIAL SUBCUT (10:09)
[2022-01-15] MEDS: INSULIN GLARGINE 100 UNIT/ML 3ML PEN SUBCUT (10:11)
[2022-01-15] MEDS: ASPIRIN EC 81 MG TABLET PO (10:14)
[2022-01-15] MEDS: DOCUSATE 100 MG CAPSULE PO ×2 (10:15→20:06)
[2022-01-15] MEDS: PANTOPRAZOLE DR 20 MG TABLET PO (10:15)
[2022-01-15] MEDS: ENOXAPARIN 40 MG/0.4 ML SYRINGE SUBCUT (10:15)
--- NOTE | 2022-01-15 10:16 | CM.DANOTE ---
DCP: Case received, EMR reviewed and met with patient. Introduced self and role. Was able to obtain information regarding patient's baseline activity status prior to her hospitalization. DCP assessment completed with information currently available. Patient is a 66 year old female who admitted yesterday morning to the care of the hospitalist team. PCP: CHRISTOPHE Jade. Payer: confirmed: Medicare/[employer] for [email or web address]. Patient came to the hospital via private vehicle, she was originally at the walk in clinic, to be evaluated for sepsis. Patient had noted increased urinary frequency over the pat few days, and started developing some flank back pain. She also noted weakness and nausea. She had an elevated heart rate and was febrile. She was diagnosed with urosepsis. Met with patient in her room. She was sitting up in bed, alert and oriented. She needed help with her remote to turn her tv off, stated, she does not see very well. Confirmed that she resides here in [place] with her spouse, Lan. She is independent at baseline, and is employed at [employer], in [facility]. P: DCP to continue to follow. Discussed during team rounds, and patient will be here another day. Plan is home when stable. Little Whalen RN/Sales Property Manager Discharge Planning/Care Management CM Discharge Assessment Start: 01/15/22 10:06 Freq: Status: Active Protocol: Document 01/15/22 10:06 (Rec: 01/15/22 10:15 [id number]) Discharge Planning Assessment Assigned [employer] Little Whalen RN/Sales Property Manager Advance Directives? No History Provided By Patient,Medical Record Prior Living Arrangements House Household Members spouse Type of transporation used prior to Relies on Others admit Independent with ADL's Yes Is patient alert and oriented? Yes Caregiver for Another No Barriers to Discharge No Discharge Plan Home Transportation Arrangement Spouse Referrals Initiated None needed Whiteboard Updated in Patient Room with Yes name and ext. # of [employer] Designer Review Status In Process Next Review Type Continued Stay Review
[2022-01-15] MEDS: MORPHINE 2 MG/ML INJ IV ×3 (10:19→20:06)
[2022-01-15] MEDS: POTASSIUM CHLORIDE 20 MEQ TAB 40 MEQ PO ×2 (12:13→19:20)
--- NOTE | 2022-01-15 17:46 | P.PN_ITS ---
Subjective Subjective Date Patient Seen: 01/15/22 Time Patient Seen: 08:00 Interval history: She is feeling somewhat improved, though quite fatigued and persistently febrile. Exam Vital Signs (past 8 hours): - 01/15/22 12:12 01/15/22 12:00 01/15/22 13:01 Temperature 102 F H 102 F H 100.5 F H Pulse Rate 107 H 110 H Respiratory Rate 18 18 Blood Pressure 123/54 L 102/53 L Pulse Oximetry 97 95 Oxygen Delivery Method Oxygen Flow Rate 1.5 1.5 Fraction of Inspired Oxygen 01/15/22 13:37 01/15/22 12:30 01/15/22 17:17 Temperature 100.2 F H 99.5 F Pulse Rate 90 Respiratory Rate 16 Blood Pressure 107/43 L Pulse Oximetry 95 100 Oxygen Delivery Method Nasal Cannula Oxygen Flow Rate 1.5 1.5 Fraction of Inspired Oxygen 26 Fraction of Inspired Oxygen 26 SaO2/FiO2 Ratio 365 Oxygen Delivery Method Nasal Cannula Oxygen Flow Rate 1.5 Narrative Exam Narrative: GEN: fatigued CV: tachycardic ABD: soft, mildly tender, no rebound/guarding Objective Labs Result Diagrams: 01/15/22 06:25 01/15/22 06:25 Labs: Laboratory Results - last 24 hr 01/14/22 01/14/22 01/14/22 19:45 19:45 19:45 WBC 24.3 H RBC 4.58 Hgb 12.9 Hct 37.5 MCV 82.0 MCH 28.1 MCHC 34.3 RDW 13.6 Plt Count 309 Neut % (Auto) 90.9 H Lymph % (Auto) 3.1 L [place] % (Auto) 5.8 Eos % (Auto) 0.1 L Baso % (Auto) 0.1 Neut # (Auto) 16425 H Lymph # (Auto) 700 L [place] # (Auto) 1400 H Eos # (Auto) 0 Baso # (Auto) 0 Total Counted Seg Neutrophils % Band Neutrophils % Lymphocytes % (Manual) Monocytes % (Manual) Neutrophils # (Manual) RBC Morphology Sodium 136 L Potassium 3.6 Chloride 99 Carbon Dioxide 25 BUN 20 H Creatinine 0.68 Estimated GFR > 60 BUN/Creatinine Ratio 29.4 H Glucose 145 H Hemoglobin A1c Lactate 0.9 Calcium 9.4 Magnesium Total Bilirubin 1.0 AST 30 ALT 36 H Alkaline Phosphatase 85 Total Protein 8.0 Albumin 4.3 Globulin 3.7 Albumin/Globulin Ratio 1.2 Lipase 46 Procalcitonin 0.32 SARS-CoV-2 (PCR) 01/14/22 01/14/22 01/15/22 19:45 20:54 06:25 WBC 13.3 H RBC 3.56 L Hgb 10.0 L Hct 29.2 L MCV 81.8 MCH 28.1 MCHC 34.4 RDW 13.7 Plt Count 242 Neut % (Auto) Not Reportable Lymph % (Auto) Not Reportable [place] % (Auto) Not Reportable Eos % (Auto) Not Reportable Baso % (Auto) Not Reportable Neut # (Auto) Lymph # (Auto) Not Reportable [place] # (Auto) Not Reportable Eos # (Auto) Baso # (Auto) Not Reportable Total Counted 100 Seg Neutrophils % 92.0 H Band Neutrophils % 1.0 L Lymphocytes % (Manual) 3.0 L Monocytes % (Manual) 4.0 Neutrophils # (Manual) 60869 H RBC Morphology Normal morphology Sodium Potassium Chloride Carbon Dioxide BUN Creatinine Estimated GFR BUN/Creatinine Ratio Glucose Hemoglobin A1c 5.3 Lactate Calcium Magnesium Total Bilirubin AST ALT Alkaline Phosphatase Total Protein Albumin Globulin Albumin/Globulin Ratio Lipase Procalcitonin SARS-CoV-2 (PCR) Negative 01/15/22 06:25 WBC RBC Hgb Hct MCV MCH MCHC RDW Plt Count Neut % (Auto) Lymph % (Auto) [place] % (Auto) Eos % (Auto) Baso % (Auto) Neut # (Auto) Lymph # (Auto) [place] # (Auto) Eos # (Auto) Baso # (Auto) Total Counted Seg Neutrophils % Band Neutrophils % Lymphocytes % (Manual) Monocytes % (Manual) Neutrophils # (Manual) RBC Morphology Sodium 134 L Potassium 3.0 L Chloride 104 Carbon Dioxide 23 BUN 16 Creatinine 0.61 Estimated GFR > 60 BUN/Creatinine Ratio 26.2 H Glucose 135 H Hemoglobin A1c Lactate Calcium 7.7 L Magnesium 1.5 L Total Bilirubin 0.5 AST 21 ALT 24 Alkaline Phosphatase 58 Total Protein 5.8 L Albumin 3.0 L Globulin 2.8 Albumin/Globulin Ratio 1.1 Lipase Procalcitonin SARS-CoV-2 (PCR) [facility] Medical History Anxiety Depression Diabetes mellitus, type II Diverticulitis Dyslipidemia Elevated BP without diagnosis of hypertension Frequency of urination GERD (gastroesophageal reflux disease) History of ectopic Insomnia Lung collapse Melanoma Osteopenia Seizure Skin cancer Surgical History History of hysterectomy Family History Mother Diabetes mellitus Father Myocardial infarction Sister Diabetes mellitus Sister Diabetes mellitus Brother Diabetes mellitus Social History household members: spouse Smoking Status: Former smoker alcohol intake: current Assessment & Plan Assessment & Plan narrative: 1. Sepsis from pyelonephritis -continue on IV fluids -remains persistently febrile and tachycardic -urine culture growing gram negative bacteria -continue on high dose cefepime 2gm q8 and narrow as able -follow up urine and blood cultures -CT abdomen showed bilateral but right > left hydronephrosis with no evidence of stone, spoke with urology who suspects decreased motility of ureter in setting of infection -if not improved on 01/16 further eval with abdominal imaging, consider formal urology consult Type 2 diabetes -hold oral medications -continue lantus and sliding scale Hyperlipidemia -continue aspirin, statin COVID-19 COVID-19 status: Negative Result date/Date tested (Pos, Neg/Pending): 01/14/22 Time Spent With Patient Critical Care time: I spent a total of [] minutes of critical care time on this patient's care today; this time is exclusive of procedural time. Quality VTE Deep Vein Thrombosis/Pulmonary Embolism Present on Admission: No
[2022-01-15] MEDS: GABAPENTIN 300 MG CAPSULE PO (20:06)
[2022-01-15] MEDS: ATORVASTATIN 20 MG TABLET 40 MG PO (21:48)
[2022-01-15 23:46] LABS: HEMOLYSIS < 15 (0-50); Potassium 3.4 mmol/L (3.4-5.1)
[2022-01-16] VITALS (15 sets, daily range): BP systolic 91–127; BP diastolic 42–72; PULSE 79–107; RESP 14–28; TEMP 36.4–37.4; O2SAT 82–99
[2022-01-16] MEDS: CEFEPIME 2 GM in SODIUM CHLORIDE 0.9% 100 ML IV ×3 (01:18→17:47)
[2022-01-16] MEDS: ACETAMINOPHEN 325 MG TABLET 650 MG PO ×2 (03:05→11:41)
[2022-01-16 03:56] LABS: Fractionated Inspired Oxygen 100; HCO3 ABG 20 mmol/L (22-26); Oxygen Saturation ABG 100 % (95-100); PCO2 ABG 38.6 mmHg (35-45); TCO2 ABG 21 mmol/L (21-31); pH ABG 7.32 (7.35-7.45)
[2022-01-16 03:57] LABS: PO2 ABG 295 mmHg (80-100)
[2022-01-16] MEDS: SODIUM CHLORIDE 0.9% 1,000 ML 150 ML IV (04:34)
--- NOTE | 2022-01-16 04:37 | PC.NURSE ---
Pt was c/o coldness and shivering, warm blanket provided, tylenol given. Sats dropped to 80s, HR 110s, BP 102/72, T 97.9. Pt violently shivering. RT called, placed Non rebreather at 15L. Hospitalist Daya Brown notified. ABG and labs ordered and drawn. With PO2 at 295, changed to NC 4L, sating at 92. this episode took at least 30m for pt to come back to baseline. According to prior nurse this happened yesterday too.
[2022-01-16 04:39] LABS: Add Manual Diff / Slide Review NO; Basophils Absolute Auto 0 /uL (0-100); Basophils Percent Auto 0.4 % (0-2); Eosinophils Absolute Auto 0 /uL (0-450); Eosinophils Percent Auto 0.2 % (2-4); Hematocrit 28.3 % (36-46); Hemoglobin 9.8 g/dL (12.0-16.0); Lymphocytes Absolute Auto 600 /uL (1100-4500); Lymphocytes Percent Auto 7.2 % (25-40); Mean Corpuscular HGB Conc 34.8 % (30-36); Mean Corpuscular Hemoglobin 28.7 PG (26-34); Mean Corpuscular Volume 82.3 fL (80-100); Monocytes Absolute Auto 600 /uL (0-900); Monocytes Percent Auto 7.6 % (3-14); Neutrophils Absolute Auto 6800 /uL (1500-7000); Neutrophils Percent Auto 84.6 % (50-75); Platelet Count 216 X10^3/uL (150-400); Red Blood Cell Count 3.43 X10^6/uL (4.0-5.2); Red Cell Distribution Width 14.3 % (11.6-14.8)
[2022-01-16 04:47] LABS: D Dimer 1458 ng/ml (<500)
[2022-01-16 04:51] LABS: Alanine Aminotransferase 23 IU/L (<35); Albumin 2.9 g/dL (3.5-5.0); Alkaline Phosphatase 66 U/L (38-126); Aspartate Aminotransferase 23 IU/L (14-36); BUN Creatinine Ratio 19.7 (6-22); Bilirubin Total 0.6 mg/dL (0.2-1.3); Blood Urea Nitrogen 12 mg/dL (7-17); Calcium 7.7 mg/dL (8.4-10.2); Carbon Dioxide 19 mmol/L (22-32); Chloride 111 mmol/L (98-107); Estimated Glomerular Filt Rate > 60 mL/min (>60); Globulin 2.9 g/dL (1.7-4.1); Glucose 125 mg/dL (80-110); HEMOLYSIS < 15 (0-50); Magnesium 1.9 mg/dL (1.6-2.3); Potassium 3.4 mmol/L (3.4-5.1); Sodium 140 mmol/L (137-145); Total Protein 5.8 g/dL (6.3-8.2)
--- NOTE | 2022-01-16 05:03 | DI.CT.S_ITS ---
PROCEDURE: CT ANGIO CHEST PE PROTOCOL INDICATIONS: hypoxia requiring O2, elevated dimer TECHNIQUE: After the administration of intravenous contrast, 2 mm thick sections acquired from the pulmonary apices to the posterior costophrenic angles. 3-dimensional maximum intensity projection (MIP) coronal and sagittal reformats were then acquired through the thorax. For radiation dose reduction, the following was used: automated exposure control, adjustment of mA and/or kV according to patient size. COMPARISON: [facility], CT, CT ABDOMEN PELVIS W CON, 01/15/2022, 8:39. [facility], CR, XR CHEST 1V, 01/14/2022, 20:14. FINDINGS: Image quality: Excellent. Pulmonary arteries: Pulmonary arteries are normal in size, and demonstrate no intraluminal filling defects to suggest central pulmonary embolism. Lungs and pleura: Small bilateral pleural effusions are seen. Mild patchy ground-glass opacity can be seen, which is primarily seen dependently within both lungs. No consolidated infiltrates are seen. No pneumothorax is seen. Within the subpleural left upper lobe anteriorly, there is a 7 mm nodule seen, as on series 5, image 111. Within the right upper lobe, there is a 3 mm nodule seen laterally, as on series 5, image 115. Mediastinum: Heart size is mildly enlarged, without pericardial effusion. No mediastinal or hilar adenopathy. Thoracic aorta is normal in caliber and enhancement. Esophagus is normal in caliber. There is a small hiatal hernia. Bones and chest wall: No suspicious bony lesions. Ribs and thoracic spine appear intact throughout. Thyroid gland demonstrates no significant abnormality. No axillary or supraclavicular adenopathy. Abdomen: Visualized upper abdominal solid organs appear normal in the early arterial phase of enhancement. IMPRESSION: Negative for pulmonary embolism. Mild cardiomegaly with trace pleural effusions and dependent ground-glass opacity. CHF is suspected. 7 mm apparent left upper lobe nodule and a 3 mm right upper lobe nodule. By published criteria, please consider noncontrast chest CT follow-up in 3-6 months. Incidental note is made of: Small hiatal hernia Note: No significant discrepancy from the preliminary report. Dictated by: Bethel Monterroso M.D. on 01/16/2022 at 7:12 Approved by: Bethel Monterroso M.D. on 01/16/2022 at 7:22
--- NOTE | 2022-01-16 05:05 | DI.US.S_ITS ---
PROCEDURE: US PERIPH VENOUS LOW EXTREM BI INDICATIONS: elevated dimer concerning for VTE TECHNIQUE: Real-time imaging, as well as color and pulse Doppler interrogation, were performed of the deep veins of both legs from the inguinal ligament to the popliteal fossa. COMPARISON: None. FINDINGS: Right: The common femoral, femoral and popliteal veins are normally compressible, and free of intraluminal thrombus. Color and pulse Doppler demonstrate normal phasic intravascular flow. There is normal augmentation response to distal compression maneuver. Left: The common femoral, femoral and popliteal veins are normally compressible, and free of intraluminal thrombus. Color and pulse Doppler demonstrate normal phasic intravascular flow. There is normal augmentation response to distal compression maneuver. IMPRESSION: Negative for deep venous thrombosis. Dictated by: Bethel Monterroso M.D. on 01/16/2022 at 8:13 Approved by: Bethel Monterroso M.D. on 01/16/2022 at 8:13
[2022-01-16] MEDS: ASPIRIN EC 81 MG TABLET PO (08:42)
[2022-01-16] MEDS: DOCUSATE 100 MG CAPSULE PO (08:42)
[2022-01-16] MEDS: POTASSIUM CHLORIDE 20 MEQ TAB 40 MEQ PO (08:42)
[2022-01-16] MEDS: ENOXAPARIN 40 MG/0.4 ML SYRINGE SUBCUT (08:43)
[2022-01-16] MEDS: PANTOPRAZOLE DR 20 MG TABLET PO (08:43)
[2022-01-16] MEDS: INSULIN GLARGINE 100 UNIT/ML 3ML PEN SUBCUT (08:58)
[2022-01-16] MEDS: INSULIN LISPRO 100 UNIT/ML 3ML VIAL SUBCUT (12:19)
[2022-01-16] MEDS: TRAMADOL 50 MG TABLET PO (14:47)
[2022-01-16] MEDS: METOCLOPRAMIDE 10 MG/2 ML INJ 5 MG IV (14:47)
--- NOTE | 2022-01-16 17:01 | PM.PN.1 ---
Subjective Subjective Date Patient Seen: 01/16/22 Interval history: Complains of recent constipation, abdominal pain improved. Later in the day she had 4 episodes of loose stool, c. diff ordered. BP remains soft, overnight developed respiratory failure, CTA showed volume overload but no PE. Improving O2 today after stopping IV fluids. Exam Vital Signs (past 8 hours): - 01/16/22 11:21 01/16/22 12:07 Temperature 98.6 F Pulse Rate 82 Respiratory Rate 17 Blood Pressure 103/47 L Pulse Oximetry 97 94 Oxygen Delivery Method Nasal Cannula Oxygen Flow Rate 2 2 Fraction of Inspired Oxygen 26 SaO2/FiO2 Ratio 365 Oxygen Delivery Method Nasal Cannula Oxygen Flow Rate 2 Narrative Exam Narrative: Gen: Alert, oriented, well-developed 66 y.o. female, no acute distress. HEENT: normocephalic, atraumatic, conjunctiva clear, sclera non-icteric, oral mucosa pink and moist Neck: supple, full ROM, no JVD, trachea is midline Resp: Lungs CTA, non-labored breathing CV: RRR, no murmur, rubs or gallops Abd: S NT ND Skin: No lesions or rashes, dry and intact Neuro: Alert and oriented X 4 w/no focal deficits. Extremities: no edema or joint effusions. Psyche: normal mood and affect. Objective Labs Result Diagrams: 01/16/22 04:25 01/16/22 04:25 Labs: Laboratory Results - last 24 hr 01/15/22 01/16/22 01/16/22 23:15 03:40 04:25 WBC 8.0 RBC 3.43 L Hgb 9.8 L Hct 28.3 L MCV 82.3 MCH 28.7 MCHC 34.8 RDW 14.3 Plt Count 216 Neut % (Auto) 84.6 H Lymph % (Auto) 7.2 L [place] % (Auto) 7.6 Eos % (Auto) 0.2 L Baso % (Auto) 0.4 Neut # (Auto) 6800 Lymph # (Auto) 600 L [place] # (Auto) 600 Eos # (Auto) 0 Baso # (Auto) 0 D-Dimer ABG pH 7.32 L ABG pCO2 38.6 ABG pO2 295 H* ABG HCO3 20 L ABG Total CO2 21 ABG O2 Saturation 100 ABG Base Excess -6.0 L FiO2 100 Sodium Potassium 3.4 Chloride Carbon Dioxide BUN Creatinine Estimated GFR BUN/Creatinine Ratio Glucose Calcium Magnesium Total Bilirubin AST ALT Alkaline Phosphatase Total Protein Albumin Globulin Albumin/Globulin Ratio 01/16/22 01/16/22 04:25 04:25 WBC RBC Hgb Hct MCV MCH MCHC RDW Plt Count Neut % (Auto) Lymph % (Auto) [place] % (Auto) Eos % (Auto) Baso % (Auto) Neut # (Auto) Lymph # (Auto) [place] # (Auto) Eos # (Auto) Baso # (Auto) D-Dimer 1458 H ABG pH ABG pCO2 ABG pO2 ABG HCO3 ABG Total CO2 ABG O2 Saturation ABG Base Excess FiO2 Sodium 140 Potassium 3.4 Chloride 111 H Carbon Dioxide 19 L BUN 12 Creatinine 0.61 Estimated GFR > 60 BUN/Creatinine Ratio 19.7 Glucose 125 H Calcium 7.7 L Magnesium 1.9 Total Bilirubin 0.6 AST 23 ALT 23 Alkaline Phosphatase 66 Total Protein 5.8 L Albumin 2.9 L Globulin 2.9 Albumin/Globulin Ratio 1.0 PFSH Medical History Anxiety Depression Diabetes mellitus, type II Diverticulitis Dyslipidemia Elevated BP without diagnosis of hypertension Frequency of urination GERD (gastroesophageal reflux disease) History of ectopic Insomnia Lung collapse Melanoma Osteopenia Seizure Skin cancer Surgical History History of hysterectomy Family History Mother Diabetes mellitus Father Myocardial infarction Sister Diabetes mellitus Sister Diabetes mellitus Brother Diabetes mellitus Social History household members: spouse Smoking Status: Former smoker alcohol intake: current Assessment & Plan Assessment & Plan narrative: 1. Sepsis from pyelonephritis with hypotension, acute respiratory failure with hypoxia -urine culture growing gram negative bacteria -continue on high dose cefepime 2gm q8, cultures negative thus far. Can discontinue vancomycin today. If cultures remain negative tomorrow consider narrrowing to ceftriaxone. -follow up urine and blood cultures -CT abdomen showed bilateral but right > left hydronephrosis with no evidence of stone, spoke with urology who suspects decreased motility of ureter in setting of infection 2. Acute respiratory failure with hypoxia - suspect secondary to volume overload from fluids given in setting of sepsis given CT appearance. - avoid diuresis given relatively low BP - improving hypoxia with holding fluids. - consider TTE if she remains on oxygen tomorrow. 3. Type 2 diabetes -holding oral medications -continue lantus and sliding scale 4. Hyperlipidemia -continue aspirin, statin Code: Full DVT: Lovenox COVID-19 COVID-19 status: Negative Result date/Date tested (Pos, Neg/Pending): 01/14/22 Time Spent With Patient Critical Care time: I spent a total of [] minutes of critical care time on this patient's care today; this time is exclusive of procedural time. Quality VTE Deep Vein Thrombosis/Pulmonary Embolism Present on Admission: No
[2022-01-16 19:02] LABS: Clostridium Difficile Tox PCR Negative for C. diff (Negative)
[2022-01-16] MEDS: MORPHINE 2 MG/ML INJ IV (20:32)
[2022-01-16] MEDS: ATORVASTATIN 20 MG TABLET 40 MG PO (20:41)
[2022-01-16] MEDS: GABAPENTIN 300 MG CAPSULE PO (20:42)
[2022-01-17] VITALS (10 sets, daily range): BP systolic 107–136; BP diastolic 57–73; PULSE 85–89; RESP 17–20; TEMP 36.6–37.8; O2SAT 93–98
[2022-01-17] MEDS: ACETAMINOPHEN 325 MG TABLET 650 MG PO ×3 (01:42→16:56)
[2022-01-17] MEDS: CEFEPIME 2 GM in SODIUM CHLORIDE 0.9% 100 ML IV ×2 (01:44→08:18)
[2022-01-17] MEDS: TRAMADOL 50 MG TABLET PO ×3 (05:02→21:16)
[2022-01-17 05:06] LABS: Add Manual Diff / Slide Review NO; Basophils Absolute Auto 0 /uL (0-100); Basophils Percent Auto 0.6 % (0-2); Eosinophils Absolute Auto 100 /uL (0-450); Eosinophils Percent Auto 1.4 % (2-4); Hematocrit 29.6 % (36-46); Hemoglobin 10.3 g/dL (12.0-16.0); Lymphocytes Absolute Auto 900 /uL (1100-4500); Lymphocytes Percent Auto 17.6 % (25-40); Mean Corpuscular HGB Conc 34.9 % (30-36); Mean Corpuscular Hemoglobin 28.3 PG (26-34); Monocytes Absolute Auto 500 /uL (0-900); Neutrophils Absolute Auto 3800 /uL (1500-7000); Neutrophils Percent Auto 70.4 % (50-75); Platelet Count 276 X10^3/uL (150-400); Red Blood Cell Count 3.65 X10^6/uL (4.0-5.2); Red Cell Distribution Width 14.2 % (11.6-14.8); White Blood Cell Count 5.4 X10^3/uL (4.5-11.0)
[2022-01-17 05:12] LABS: Alanine Aminotransferase 32 IU/L (<35); Albumin 3.1 g/dL (3.5-5.0); Alkaline Phosphatase 86 U/L (38-126); Aspartate Aminotransferase 35 IU/L (14-36); BUN Creatinine Ratio 14.3 (6-22); Bilirubin Total 0.6 mg/dL (0.2-1.3); Blood Urea Nitrogen 9 mg/dL (7-17); Calcium 8.3 mg/dL (8.4-10.2); Carbon Dioxide 24 mmol/L (22-32); Chloride 108 mmol/L (98-107); Estimated Glomerular Filt Rate > 60 mL/min (>60); Globulin 3.2 g/dL (1.7-4.1); Glucose 92 mg/dL (80-110); HEMOLYSIS < 15 (0-50); Magnesium 1.7 mg/dL (1.6-2.3); Potassium 2.8 mmol/L (3.4-5.1); Sodium 142 mmol/L (137-145); Total Protein 6.3 g/dL (6.3-8.2)
[2022-01-17] MEDS: POTASSIUM CHLORIDE 20 MEQ TAB 40 MEQ PO (06:02)
[2022-01-17] MEDS: POTASSIUM CHLORIDE IN WATER 10 MEQ/100 ML PIGGYBACK 100 MEQ IV (06:03)
[2022-01-17] MEDS: POTASSIUM CHLORIDE IN WATER 10 MEQ/100 ML PIGGYBACK 50 MEQ IV (08:13)
[2022-01-17] MEDS: INSULIN GLARGINE 100 UNIT/ML 3ML PEN SUBCUT (08:15)
[2022-01-17] MEDS: ASPIRIN EC 81 MG TABLET PO (08:17)
[2022-01-17] MEDS: PANTOPRAZOLE DR 20 MG TABLET PO (08:17)
[2022-01-17] MEDS: ENOXAPARIN 40 MG/0.4 ML SYRINGE SUBCUT (08:18)
[2022-01-17] MEDS: MAGNESIUM CHLORIDE 64 MG TABLET 128 MG PO (10:55)
[2022-01-17] MEDS: cefTRIAXone 1,000 MG in SODIUM CHLORIDE 0.9% 100 ML 200 MG IV (10:55)
[2022-01-17] MEDS: INSULIN LISPRO 100 UNIT/ML 3ML VIAL SUBCUT ×2 (12:07→16:57)
--- NOTE | 2022-01-17 14:37 | PT.IIE ---
Current Diagnoses Sepsis, unspecified organism (01/14/22) Surgical History (Last Reviewed 01/15/22 @ 00:22 by CHRISTOPHE Liu) History of hysterectomy Medical History (Last Reviewed 01/15/22 @ 00:22 by CHRISTOPHE Liu) Anxiety Depression Diabetes mellitus, type II Diverticulitis Dyslipidemia Elevated BP without diagnosis of hypertension Frequency of urination GERD (gastroesophageal reflux disease) History of ectopic Insomnia Lung collapse Melanoma Osteopenia Seizure Skin cancer Physical Therapy Inpatient Evaluation/Re-Eval M1 PT/OT-IP Prior Functional Status Start: 01/17/22 11:48 Freq: NEEDED Status: Active Protocol: Document 01/17/22 14:37 AW (Rec: 01/17/22 15:58 AW [id number]) Medical Review Prior Functional Status Medical History Reviewed Yes Communication WNL. Pt is an effective verbal communicator. Mobility and Gait Independent without assistive device. Pt had a fall in July and fractured her right humerus. She had poor healing and was in a sling for an extended time. She now has a heightened fear of falling. Activities of Daily Living and IADL's Pt has difficulty with upper body dressing due to limited GH internal rotation. She is otherwise independent with ADL 's. She does drive. Social History Household Members spouse Living Arrangements House Number of Floors (Floors) Two Floors Number of Stairs To Enter/Railing? 1 NO with no rail. 12 steps down with unilateral rail to pt's basement office. Home Environment Standard Height Toilet,Tub/ Shower Home Equipment Front Wheel Walker,Straight Cane Employment Status [employer] Employed Additional Social History Comment Pt lives with her spouse, Lan, who works crazy hours . 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 Pt states spouse will be home on day of discharge but will be returning to work. She believes her daughter may be able to check in while spouse is at work. M2 PT-IP Current Condition Start: 01/17/22 11:48 Freq: NEEDED Status: Active Protocol: Document 01/17/22 14:37 AW (Rec: 01/17/22 15:58 AW [id number]) Physical Therapy Current Condition Current Condition Evaluation Date 01/17/22 Treatment Diagnosis sepsis, hypoxic resp failure; deconditioning, impaired mobility Onset Date 01/14/22 M3 PT-IP Subjective Start: 01/17/22 11:48 Freq: NEEDED Status: Active Protocol: Document 01/17/22 14:37 AW (Rec: 01/17/22 15:58 AW [id number]) Subjective Physical Therapy Visit Type Type Initial Evaluation Visit Start Time 14:00 Visit Stop Time 14:37 Total Visit Minutes 37 Notes Pt's spouse was present throughout eval. Physical Therapy Visit Comments Patient Comments Pt is willing to participate with PT Patient Goals Return home with family support Therapy Pain Assessment Pain When Pain Assessed At Rest Location headache Intensity 5 Scale Used Numeric (0 - 10) M4 PT-IP Mobility and Gait Start: 01/17/22 11:48 Freq: NEEDED Status: Active Protocol: Document 01/17/22 14:37 AW (Rec: 01/17/22 15:58 AW [id number]) PT-Bed Mobility Assessment Supine to Sit Supine to Sit Contact Guard Assistance, Bedrails PT-Transfer Assessment Sit to and From Stand Sit to and from Stand Contact Guard Assistance,Use of Upper Extremities Equipment Transfer Assistive Device Gait Belt,Front Wheeled Walker Orthotic/Prosthetic Devices or Brace: No Transfers Transfer Destination Chair,Toilet Transfer Technique ambulated with and without FWW Transfer Ability Level of Assist Contact Guard Assistance,Use of Upper Extremities Comments Mobility Comments Pt was lying in bed as PT arrived. BP 125/94 HR 94 SpO2 94% on room air. Pt completed supine to sit CGA with heavy use of bed rail and needed extra time. Sitting balance was good. Pt was unsteady in initial standing but wanted to walk to the toilet without AD . CGA/min A for lateral LOB on the way to the toilet and pt was reaching for counter, door frame, grab bar. She sat on the toilet without need for UE support. She stood again and walked to the sink again without AD but needing CGA/ Suzanne. Pt agreed to walk with FWW. She walked 75 feet in the halls SBA with the walker. On return to the room, she transferred to the chair where she was left with call light and all needs in reach. Gait Assessment Gait Gait Assistance Required: Standby Assistance,Contact Guard Assist,Minimum Assistance Distance (Feet) 75 Assistive Devices Assistive Device None,Gait Belt,Front Wheeled Walker Orthotic/Prosthetic Devices or Brace: No Gait Deviations General Gait Pattern Antalgic,Decreased Stride Length,Decreased Feet Clearance,Flexed Trunk Factors Limiting Gait Function Factors Limiting Gait Function Decreased Activity Tolerance, Decreased Strength,Poor Balance,Poor Safety Awareness Comments Gait Comments Pt denied need for AD but required CGA/min A without device and only SBA with FWW. Gait speed was slow and pt reported weakness and fatigue after ~50 feet. Stair Climbing Assessment Comments Stair Climbing Comments Not assessed. PT-Balance Assessment Sitting Balance and Reactions Static Sitting Balance Ability Good Dynamic Sitting Balance Ability Good Standing Balance and Reactions Static Standing Balance Ability Fair Dynamic Standing Balance Ability Fair Device Used fair with FWW; poor without AD M5 PT-IP Objective Assessments Start: 01/17/22 11:48 Freq: NEEDED Status: Active Protocol: Document 01/17/22 14:37 AW (Rec: 01/17/22 15:58 AW [id number]) Orientation Orientation/Cognition Level of Alertness Alert Orientation Name,Day of Week,Place, Situation Language Function Ability No Deficits Noted Safety Awareness Decreased Safety Awareness Gross Range of Motion Upper Extremity ROM Assessment Right Impaired Impairments Recent right humerus fracture with delayed healing and less than ideal rehab outcomes. Lower Extremity ROM Assessment Within Functional Limits Strength Lower Extremity Strength Assessment Bilaterally Impaired Hip 4-/5 Knee 4/5 Ankle 4/5 Sensation Assessment Sensation Gross Sensation WNL M6 PT-IP Treatment Start: 01/17/22 11:48 Freq: NEEDED Status: Active Protocol: Document 01/17/22 14:37 AW (Rec: 01/17/22 15:58 AW [id number]) Physical Therapy Treatment Education Education Provided Safety Other Treatments Other Treatment Performed Educated pt on recommendation for assistive device at this time for safety and fatigue management to reduce risk of falls. M7 PT-IP Assessment and Plan Start: 01/17/22 11:48 Freq: NEEDED Status: Active Protocol: Document 01/17/22 14:37 AW (Rec: 01/17/22 15:58 AW [id number]) PT Summary Assessment and Plan Potential Rehabilitation Potential Good Status of Condition at Evaluation Evolving Summary Impairments Pain,ROM,Strength,Balance,Bed Mobility,Transfers,Gait, Activity Tolerance Assessment Summary Lucrecia is a 66 yo woman admitted with sepsis and acute respiratory failure secondary to pyelonephritis. PLOF: Pt is independent without assistive device but does have history of a recent fall resulting in right humerus fracture. Delayed healing and prolonged immobilization resulted in reduced ROM and need for assist with upper body dressing. CLOF: Pt is needing SBA for ambulation with FWW and quickly approaches fatigue. Gait with FWW is very slow. Gait without AD is unsteady and unsafe. PT educated pt on recommendation for FWW at this time but pt appears reluctant. Pt will not have 24/7 assist at home and PT stressed the importance of AD to decrease risk of falls. Pt would certainly benefit from continued acute and home health PT to address functional gait and strength for improved independence at home. Goals Bed Mobility Goal Independent Transfer Goal Independent,Front Wheeled Walker Gait Goal Independent,Front Wheel Walker Gait Distance 200 Other Goals - up/down 1 platform step SBA - up/down 12 steps with unilateral rail SBA Days to Meet Goals 5 Frequency of Treatment Frequency Of Treatment Once a Day Treatment Plan Physical Therapy Treatment Plan Bed Mobility Training,Transfer Training,Gait Training, Therapeutic Exercise,Balance Retraining,Discharge Planning, Hot or Cold Pack,Neuromuscular Re-ed Other Recommendations and Next Treatment progress gait with FWW; assess Focus with SPC if safe; stairs Precautions Other Precautions falls Recommendations To Nursing Amount of Assist Needed 1 Person Assist Discharge Recommendations PT Discharge Recommendations Home with Assistance,Home Health Transportation Needs at Discharge Private Vehicle
--- NOTE | 2022-01-17 15:20 | PM.PN.1 ---
Subjective Subjective Date Patient Seen: 01/17/22 Interval history: Still with some loose stools today but improved overall. Remains weak. Antibiotics narrowed to ceftriaxone. Continues with therapies. No chest pain or shortness of breath. No nausea or vomiting. Exam Vital Signs (past 8 hours): - 01/17/22 08:00 01/17/22 08:18 01/17/22 12:00 Temperature 98.7 F 98.8 F Pulse Rate 89 89 Respiratory Rate 17 18 Blood Pressure 134/72 107/71 Pulse Oximetry 97 93 Oxygen Delivery Method Room Air Oxygen Flow Rate 0 0 Fraction of Inspired Oxygen 26 SaO2/FiO2 Ratio 365 Oxygen Delivery Method Room Air Oxygen Flow Rate 0 Narrative Exam Narrative: Gen: Alert, oriented, well-developed 66 y.o. female, no acute distress. HEENT: normocephalic, atraumatic, conjunctiva clear, sclera non-icteric, oral mucosa pink and moist Neck: supple, full ROM, no JVD, trachea is midline Resp: Lungs CTA, non-labored breathing CV: RRR, no murmur, rubs or gallops Abd: S NT ND Skin: No lesions or rashes, dry and intact Neuro: Alert and oriented X 4 w/no focal deficits. Extremities: no edema or joint effusions. Psyche: normal mood and affect. Objective Labs Result Diagrams: 01/17/22 04:45 01/17/22 04:45 Labs: Laboratory Results - last 24 hr 01/16/22 01/17/22 01/17/22 17:50 04:45 04:45 WBC 5.4 RBC 3.65 L Hgb 10.3 L Hct 29.6 L MCV 81.0 MCH 28.3 MCHC 34.9 RDW 14.2 Plt Count 276 Neut % (Auto) 70.4 Lymph % (Auto) 17.6 L [place] % (Auto) 10.0 Eos % (Auto) 1.4 L Baso % (Auto) 0.6 Neut # (Auto) 3800 Lymph # (Auto) 900 L [place] # (Auto) 500 Eos # (Auto) 100 Baso # (Auto) 0 Sodium 142 Potassium 2.8 L Chloride 108 H Carbon Dioxide 24 BUN 9 Creatinine 0.63 Estimated GFR > 60 BUN/Creatinine Ratio 14.3 Glucose 92 Calcium 8.3 L Magnesium 1.7 Total Bilirubin 0.6 AST 35 ALT 32 Alkaline Phosphatase 86 Total Protein 6.3 Albumin 3.1 L Globulin 3.2 Albumin/Globulin Ratio 1.0 C. difficile Tox (PCR) Negative for c. diff [facility] Medical History Anxiety Depression Diabetes mellitus, type II Diverticulitis Dyslipidemia Elevated BP without diagnosis of hypertension Frequency of urination GERD (gastroesophageal reflux disease) History of ectopic Insomnia Lung collapse Melanoma Osteopenia Seizure Skin cancer Surgical History History of hysterectomy Family History Mother Diabetes mellitus Father Myocardial infarction Sister Diabetes mellitus Sister Diabetes mellitus Brother Diabetes mellitus Social History household members: spouse Smoking Status: Former smoker alcohol intake: current Assessment & Plan Assessment & Plan narrative: 1. Sepsis from pyelonephritis with hypotension, acute respiratory failure with hypoxia -vaginal culture with proteus, urine and blood cultures negative but will assume urinary source for now. -continue on high dose cefepime 2gm q8, cultures as noted above. Discontinued vancomycin 01/16. Changed to ceftriaxone given cluture data on 01/17. -CT abdomen showed bilateral but right > left hydronephrosis with no evidence of stone, spoke with urology who suspects decreased motility of ureter in setting of infection -PT / OT evaluations today. 2. Acute respiratory failure with hypoxia, resolved - suspect secondary to volume overload from fluids given in setting of sepsis given CT appearance. - avoid diuresis given relatively low BP - improving hypoxia with holding fluids. 3. Type 2 diabetes -holding oral medications -continue lantus and sliding scale 4. Hyperlipidemia -continue aspirin, statin Code: Full DVT: Lovenox Dispo: pending PT/OT evaluations, may be able to discharge home vs SNF tomorrow. COVID-19 COVID-19 status: Negative Result date/Date tested (Pos, Neg/Pending): 01/14/22 Time Spent With Patient Critical Care time: I spent a total of [] minutes of critical care time on this patient's care today; this time is exclusive of procedural time. Quality VTE Deep Vein Thrombosis/Pulmonary Embolism Present on Admission: No
[2022-01-17] MEDS: GABAPENTIN 300 MG CAPSULE PO (21:16)
[2022-01-17] MEDS: ATORVASTATIN 20 MG TABLET 40 MG PO (21:17)
[2022-01-17] MEDS: DOCUSATE 100 MG CAPSULE PO (21:17)
[2022-01-17] MEDS: MORPHINE 2 MG/ML INJ IV (23:16)
[2022-01-18 04:18] VITALS: BP 132/62; PULSE 97; RESP 18; TEMP 37; O2SAT 93
[2022-01-18] MEDS: TRAMADOL 50 MG TABLET PO (06:13)
[2022-01-18 06:53] LABS: BUN Creatinine Ratio 13.2 (6-22); Blood Urea Nitrogen 7 mg/dL (7-17); Calcium 8.2 mg/dL (8.4-10.2); Carbon Dioxide 32 mmol/L (22-32); Chloride 101 mmol/L (98-107); Estimated Glomerular Filt Rate > 60 mL/min (>60); Glucose 102 mg/dL (80-110); HEMOLYSIS < 15 (0-50); Sodium 140 mmol/L (137-145)
[2022-01-18 06:58] LABS: Magnesium 1.4 mg/dL (1.6-2.3)
[2022-01-18 07:09] LABS: Potassium 2.6 mmol/L (3.4-5.1)
[2022-01-18 07:19] LABS: Add Manual Diff / Slide Review NO; Basophils Absolute Auto 0 /uL (0-100); Basophils Percent Auto 0.6 % (0-2); Eosinophils Absolute Auto 100 /uL (0-450); Eosinophils Percent Auto 1.5 % (2-4); Hematocrit 28.3 % (36-46); Lymphocytes Absolute Auto 1600 /uL (1100-4500); Mean Corpuscular HGB Conc 35.3 % (30-36); Mean Corpuscular Hemoglobin 28.1 PG (26-34); Mean Corpuscular Volume 79.7 fL (80-100); Monocytes Absolute Auto 800 /uL (0-900); Monocytes Percent Auto 11.2 % (3-14); Neutrophils Absolute Auto 4400 /uL (1500-7000); Neutrophils Percent Auto 63.7 % (50-75); Platelet Count 293 X10^3/uL (150-400); Red Blood Cell Count 3.55 X10^6/uL (4.0-5.2); Red Cell Distribution Width 13.7 % (11.6-14.8); White Blood Cell Count 6.9 X10^3/uL (4.5-11.0)
[2022-01-18] MEDS: ACETAMINOPHEN 325 MG TABLET 650 MG PO (07:41)
[2022-01-18] MEDS: PANTOPRAZOLE DR 20 MG TABLET PO (08:17)
[2022-01-18] MEDS: ENOXAPARIN 40 MG/0.4 ML SYRINGE SUBCUT (08:17)
[2022-01-18] MEDS: POTASSIUM CHLORIDE 20 MEQ TAB 40 MEQ PO ×2 (08:17→12:33)
[2022-01-18] MEDS: ASPIRIN EC 81 MG TABLET PO (08:17)
[2022-01-18] MEDS: INSULIN GLARGINE 100 UNIT/ML 3ML PEN SUBCUT (08:18)
[2022-01-18 08:20] VITALS: BP 119/67; PULSE 82; RESP 18; TEMP 37.3; O2SAT 94
[2022-01-18] MEDS: MAGNESIUM CHLORIDE 64 MG TABLET 128 MG PO (09:11)
--- NOTE | 2022-01-18 09:35 | PT.IPTN ---
Current Diagnoses Sepsis, unspecified organism (01/14/22) Physical Therapy Treatment Note M2 PT-IP Current Condition Start: 01/17/22 11:48 Freq: NEEDED Status: Active Protocol: Document 01/17/22 14:37 AW (Rec: 01/17/22 15:58 AW [id number]) Physical Therapy Current Condition Current Condition Evaluation Date 01/17/22 Treatment Diagnosis sepsis, hypoxic resp failure; deconditioning, impaired mobility Onset Date 01/14/22 M3 PT-IP Subjective Start: 01/17/22 11:48 Freq: NEEDED Status: Active Protocol: Document 01/18/22 09:35 AB (Rec: 01/18/22 11:37 AB [email or web address]) Subjective Physical Therapy Visit Type Type Treatment Note Visit Start Time 09:35 Visit Stop Time 09:45 Total Visit Minutes 10 Number of PAYMENT SPECIALIST Visits 0 Physical Therapy Visit Comments Patient Comments needs motivation to do PT; stated that she is fine moving around by herself Therapy Pain Assessment Location headache Scale Used scale not stated M4 PT-IP Mobility and Gait Start: 01/17/22 11:48 Freq: NEEDED Status: Active Protocol: Document 01/18/22 09:35 AB (Rec: 01/18/22 11:37 AB [email or web address]) PT-Bed Mobility Assessment Supine to Sit Supine to Sit Standby Assistance Sit to Supine Sit to Supine Standby Assistance PT-Transfer Assessment Sit to and From Stand Sit to and from Stand Standby Assistance,Contact Guard Assistance,1 Person Assistance Equipment Transfer Assistive Device None,Gait Belt Orthotic/Prosthetic Devices or Brace: No Transfers Transfer Destination Toilet Transfer Technique ambulated Transfer Ability Level of Assist Standby Assistance,Contact Guard Assistance,1 Person Assistance,Use of Upper Extremities Comments Mobility Comments pt initially refusing PT and stated that she is not needing assistance and fine moving around by herself. requested to use the toilet. completed supine to sit SBA. sit to stand SBA to CGA with intial unsteadiness. Pt refuse to use FWW. ambulated to the toilet SBA to CGA without AD but tends to reach for the wall/ bed for support. completed toileting SBA. ambulated towards the sink SBA to CGA without AD. completed up/down step stool min A with (+) LOB and pt stated that it is because the stool is too close to the wall . pt completed again holding on to the wall CGA. pt ambulated to the bed SBA and completed sit to supine SBA. positioned in bed. call light and table placed within reach. Gait Assessment Gait Gait Assistance Required: Standby Assistance,Contact Guard Assist Distance (Feet) 10 Able to Maintain Weight Bearing Status Yes During Gait Assistive Devices Assistive Device None Orthotic/Prosthetic Devices or Brace: No Gait Deviations General Gait Pattern Decreased Stride Length, Decreased Feet Clearance Factors Limiting Gait Function Factors Limiting Gait Function Decreased Activity Tolerance, Decreased Strength,Pain,Poor Balance,Poor Safety Awareness Stair Climbing Assessment Evaluation Level of Assist On Stairs Contact Guard Assistance, Minimal Assistance Technique/Endurance Stair Climbing Direction Ascend and Descend Stair Climbing Technique Step to Step Number of Steps Climbed 1 Stair Climbing Set # Repetitions (reps) 3 PT-Balance Assessment Sitting Balance and Reactions Static Sitting Balance Ability Normal Dynamic Sitting Balance Ability Good Standing Balance and Reactions Static Standing Balance Ability Fair Dynamic Standing Balance Ability Fair Device Used without AD M5 PT-IP Objective Assessments Start: 01/17/22 11:48 Freq: NEEDED Status: Active Protocol: Document 01/17/22 14:37 AW (Rec: 01/17/22 15:58 AW [id number]) Orientation Orientation/Cognition Level of Alertness Alert Orientation Name,Day of Week,Place, Situation Language Function Ability No Deficits Noted Safety Awareness Decreased Safety Awareness Gross Range of Motion Upper Extremity ROM Assessment Right Impaired Impairments Recent right humerus fracture with delayed healing and less than ideal rehab outcomes. Lower Extremity ROM Assessment Within Functional Limits Strength Lower Extremity Strength Assessment Bilaterally Impaired Hip 4-/5 Knee 4/5 Ankle 4/5 Sensation Assessment Sensation Gross Sensation WNL M6 PT-IP Treatment Start: 01/17/22 11:48 Freq: NEEDED Status: Active Protocol: Document 01/18/22 09:35 AB (Rec: 01/18/22 11:37 AB [email or web address]) Physical Therapy Treatment Education Education Provided Safety M7 PT-IP Assessment and Plan Start: 01/17/22 11:48 Freq: NEEDED Status: Active Protocol: Document 01/18/22 09:35 AB (Rec: 01/18/22 11:37 AB [email or web address]) PT Summary Assessment and Plan Potential Rehabilitation Potential Fair Summary Impairments Pain,ROM,Strength,Balance, Cognition,Bed Mobility, Transfers,Gait,Activity Tolerance Progress Towards Goals Slow Progress due to Activity Tolerance Assessment Summary pt requiring SBA to CGA with mobility but with unsteady gait and refuses to use an AD. pt plans to go home and spouse to assist as needed. Goals Bed Mobility Goal Independent Transfer Goal Independent,Front Wheeled Walker Gait Goal Independent,Front Wheel Walker Gait Distance 200 Other Goals - up/down 1 platform step SBA - up/down 12 steps with unilateral rail SBA Days to Meet Goals 5 Frequency of Treatment Frequency Of Treatment Once a Day Treatment Plan Physical Therapy Treatment Plan Bed Mobility Training,Transfer Training,Gait Training, Therapeutic Exercise,Balance Retraining,Discharge Planning, Hot or Cold Pack,Neuromuscular Re-ed Precautions Other Precautions falls Recommendations To Nursing Amount of Assist Needed 1 Person Assist Discharge Recommendations PT Discharge Recommendations Home with Assistance,Home Health Transportation Needs at Discharge Private Vehicle
[2022-01-18] MEDS: cefTRIAXone 1,000 MG in SODIUM CHLORIDE 0.9% 100 ML 175 MG IV (09:51)
--- NOTE | 2022-01-18 10:47 | CM.DPC ---
DCP Cont: Per MD, pt is medically stable for discharge. Pt to discharge home via family POV. DCP inquired about HH and pt declines at this time. MD also does not think HH is needed for pt. No further needs needed from this DCP. Eloisa Rashid, RN/DCP
--- NOTE | 2022-01-18 10:56 | P.DS_ITS ---
History of Present Illness History of Present Illness Date Patient Seen: 01/18/22 Chief complaint: Possible infection, fever, sent by [facility] Narrative: CHRISTOPHE Fernandez: Lucrecia Cherry is a 66-year-old female with a history of diabetes type 2 on insulin, hyperlipidemia, restless leg syndrome and GERD developed significant rigors and subjective fever earlier in the day. She was referred to the emergency department from the walk-in clinic with concerns for sepsis. She did state she had some urinary frequency which is not normal for her and back pain. She cur rently has a headache, is very hungry and thirsty. She did state that she threw up x1 and has had constipation. Rest of review of systems is negative. In the emergency department she was bolused and started on IV ceftriaxone and her pain was treated with ketorolac. Her admitting temperature was 100.7? and is currently 100.2, blood pressure 116/47, heart rate 111, respiratory rate 16, oxygen saturation 98% on room air, she weighs 64.1 kg with a BMI of 23.6. She does have a significantly elevated white count of 24.3 with a left shift of 22,000, rest of CBC is unremarkable, sodium 136, glucose is 145, procalcitonin was interpreted as negative, and COVID-19 PCR is negative. A1c is pending. FH: Multiple family members with diabetes including mother, siblings. Rest of family medical history stated below. Discharge Providers Provider Date of admission: 01/14/22 21:45 Discharge Date: 01/18/22 Primary care physician: CHRISTOPHE Jade Consults: 01/17/22 09:45 Consult to Physical Therapy Evaluate & Treat Comment: Physician Instructions: Evaluate and Treat Discharge provider: Didier Gould DO Summary Hospital Course Discharge Diagnosis: 1. Sepsis from pyelonephritis with hypotension, acute respiratory failure with hypoxia 2. Acute respiratory failure with hypoxia, resolved 3. Type 2 diabetes 4. Hyperlipidemia 5. Hypokalemia and hypomagnesemia Hospital Course: This is a 67 year old female admitted with sepsis secondary to pyelonephritis. CT abdomen showed bilateral but right > left hydronephrosis with no evidence of stone, spoke with urology who suspects decreased motility of ureter in setting of infection and no inteventions were recommended. She continued to improve with antibiotic therapy. She was initially on cefepime and vancomycin, which were gradually narrowed. Vaginal culture grew proteus sensitive to ceftriaxone and augmentin. She continued to improve slowly, and was able to be discharged home after a few days working with therapy. Her respiratory status was slow to improve. CTA was performed which ruled out PE, but did show fluid congestion likely in the setting of fluid resuscitation and sepsis. This improved with witholding fluids, she was not diuresed due to low normal BP. TTE was not recommended at this time given improvement after cessation of fluids and continued antibiotics. Her magnesium and potassium were low, but she was asymptomatic and was provided for repletion at home. Time Spent with Patient Time spent: Greater than 30 minutes Exam Vital Signs (past 8 hours): - 01/18/22 04:18 01/18/22 08:20 Temperature 98.6 F 99.1 F Pulse Rate 97 H 82 Respiratory Rate 18 18 Blood Pressure 132/62 119/67 Pulse Oximetry 93 94 Oxygen Flow Rate 0 0 Fraction of Inspired Oxygen 26 SaO2/FiO2 Ratio 365 Oxygen Delivery Method Room Air Oxygen Flow Rate 0 Narrative Exam Narrative: Gen: Alert, oriented, well-developed 66 y.o. female, no acute distress. HEENT: normocephalic, atraumatic, conjunctiva clear, sclera non-icteric, oral mucosa pink and moist Neck: supple, full ROM, no JVD, trachea is midline Resp: Lungs CTA, non-labored breathing CV: RRR, no murmur, rubs or gallops Abd: S NT ND Skin: No lesions or rashes, dry and intact Neuro: Alert and oriented X 4 w/no focal deficits. Extremities: no edema or joint effusions. Psyche: normal mood and affect. Objective Labs Result Diagrams: 01/18/22 06:23 01/18/22 06:23 Labs: Laboratory Results - last 24 hr 01/18/22 01/18/22 01/18/22 06:23 06:23 06:23 WBC 6.9 RBC 3.55 L Hgb 10.0 L Hct 28.3 L MCV 79.7 L MCH 28.1 MCHC 35.3 RDW 13.7 Plt Count 293 Neut % (Auto) 63.7 Lymph % (Auto) 23.0 L [place] % (Auto) 11.2 Eos % (Auto) 1.5 L Baso % (Auto) 0.6 Neut # (Auto) 4400 Lymph # (Auto) 1600 [place] # (Auto) 800 Eos # (Auto) 100 Baso # (Auto) 0 Sodium 140 Potassium 2.6 L* Chloride 101 Carbon Dioxide 32 BUN 7 Creatinine 0.53 Estimated GFR > 60 BUN/Creatinine Ratio 13.2 Glucose 102 Calcium 8.2 L Magnesium 1.4 L PFSH Medical History Anxiety Depression Diabetes mellitus, type II Diverticulitis Dyslipidemia Elevated BP without diagnosis of hypertension Frequency of urination GERD (gastroesophageal reflux disease) History of ectopic Insomnia Lung collapse Melanoma Osteopenia Seizure Skin cancer Surgical History History of hysterectomy Family History Mother Diabetes mellitus Father Myocardial infarction Sister Diabetes mellitus Sister Diabetes mellitus Brother Diabetes mellitus Social History household members: spouse Smoking Status: Former smoker alcohol intake: current Discharge Plan Discharge Plan Patient Disposition: Home Provider Discharge Comment: You were admitted to the hospital with sepsis due to a urinary tract infection which improved with antibiotics. Please complete full course of antibiotic therapy at home. Discharge orders & Medications Prescriptions: New amoxicillin-pot clavulanate 875-125 mg tablet 1 tab PO BID 7 Days Qty: 14 0RF Mag-Delay 64 mg tablet,delayed release (DR/EC) 64 mg PO DAILY 7 Days Qty: 7 0RF potassium chloride 20 mEq tablet extended release 20 meq PO DAILY 7 Days Qty: 7 0RF Continued ibuprofen 800 mg tablet 800 mg PO TID PRN (Reason: pain) Qty: 30 2RF (DME) lancets [FreeStyle Lancets] 28 gauge misc See Rx Instructions .Route Qty: 100 3RF Rx Instructions: As directed hydrocodone-acetaminophen 5-325 mg tablet 1 tab PO Q4-6H PRN (Reason: pain) Qty: 10 0RF magnesium oxide 400 mg magnesium capsule 400 mg PO DAILY aspirin 81 mg tablet,delayed release (DR/EC) 81 mg PO DAILY Qty: 90 3RF atorvastatin 40 mg tablet 40 mg PO BEDTIME Qty: 90 3RF Trulicity 0.75 mg/0.5 mL pen injector 0.75 mg SUBCUT QWEEK Qty: 6 3RF (DME) lancets 33 gauge misc See Rx Instructions .ROUTE .MEDSUPPLY Qty: 100 3RF Rx Instructions: use to test blood sugar once daily metformin 1,000 mg tablet extended release 24hr 1,000 mg PO DAILY Qty: 90 3RF omeprazole 20 mg tablet,delayed release (DR/EC) 20 mg PO DAILY Qty: 90 3RF gabapentin 300 mg capsule 300 mg PO BEDTIME Qty: 30 2RF (DME) blood-glucose meter [FreeStyle [place] Lite] Kit See Rx Instructions .ROUTE .MEDSUPPLY Qty: 1 0RF Rx Instructions: As directed (DME) test strips See Rx Instructions .Route .MEDSUPPLY Qty: 100 3RF Rx Instructions: As directed to check blood sugar once daily cholecalciferol (vitamin D3) [Vitamin D3] 400 unit Tablet 125 mcg PO DAILY Follow up/Referrals: Dell Calhoun ARNP [Primary Care Provider] - Diet/Activity/Treatments Diet: Diet as Tolerated and Carb-consistent/Diabetic Activity: As tolerated Visit Report/Discharge Packet Instructions: DI for Urinary Tract Infection (UTI) Discharge Data Primary Care Provider: Dell Clahoun Quality VTE Deep Vein Thrombosis/Pulmonary Embolism Present on Admission: No
== END 2022-01-18 13:10 | disposition home or self-care (01) | DRG 871 ==
LOC: ED 19:43 → AC 21:46
PROVIDERS: Internal Medicine; Admitting Provider Nurse Practitioner Family; Emergency Provider Emergency Medicine; PCP Registered Nurse Diabetes Educator; Referring Provider Emergency Medicine; Visit Provider Nurse Practitioner Family
DX: A41.9 Sepsis, unspecified organism (principal); J96.01 Acute respiratory failure with hypoxia; N12 Tubulo-interstitial nephritis, not specified as acute or chronic; N13.6 Pyonephrosis; R65.20 Severe sepsis without septic shock; I95.9 Hypotension, unspecified; R19.7 Diarrhea, unspecified; E87.79 Other fluid overload; G25.81 Restless legs syndrome; E78.5 Hyperlipidemia, unspecified; K21.9 Gastro-esophageal reflux disease without esophagitis; E87.6 Hypokalemia; E83.42 Hypomagnesemia; E11.9 Type 2 diabetes mellitus without complications; Z79.85 Long-term (current) use of injectable non-insulin antidiabetic drugs; Z79.84 Long term (current) use of oral hypoglycemic drugs; Z87.891 Personal history of nicotine dependence; Z20.822 Contact with and (suspected) exposure to COVID-19; R10.9 Unspecified abdominal pain
CPT/HCPCS: 36415; 36600; 71045; 71275; 74177; 80048; 80053; 82805; 82962; 83036; 83605; 83690; 83735; 84132; 84145; 85007; 85025; 85379; 87040; 87077; 87086; 87186; 87493; 87635; 93005; 93970; 94760; 94762; 96365; 96375; 97116; 97162; 97530; 99284; C9803; J0692; J0696; J1650; J1815; J1885; J2270; J2765; J3475; Q9967

== ENCOUNTER → 2022-01-24 15:56 | Outpatient (CLI) | payer MEDICARE, OTHER, SELFPAY ==
[2022-01-14 22:34] VITALS: BMI 23.6
[2022-01-24 18:08] LABS: BUN Creatinine Ratio 17.3 (6-22); Blood Urea Nitrogen 13 mg/dL (7-17); Carbon Dioxide 36 mmol/L (22-32); Chloride 98 mmol/L (98-107); Estimated Glomerular Filt Rate > 60 mL/min (>60); Glucose 94 mg/dL (80-110); HEMOLYSIS < 15 (0-50); Sodium 143 mmol/L (137-145)
[2022-01-24 18:12] LABS: Magnesium 1.8 mg/dL (1.6-2.3)
== END ==
PROVIDERS: PCP Registered Nurse Diabetes Educator; Referring Provider Registered Nurse Diabetes Educator; Visit Provider Registered Nurse Diabetes Educator
DX: E87.6 Hypokalemia (principal); R79.0 Abnormal level of blood mineral
CPT/HCPCS: 36415; 80048; 83735

== ENCOUNTER → 2022-02-03 14:54 | Outpatient (CLI) | payer MEDICARE, OTHER, SELFPAY ==
[2022-01-14 22:34] VITALS: BMI 23.6
--- NOTE | 2022-02-03 15:01 | DI.ECHO.S_ITS ---
[facility]---------+ [facility] +---------+ : : [address] [place] [address] : : : : [id number] : : : : Phone: [phone] Echocardiogram Report + + :Name: JOEY ACUNA Study Date: 02/03/2022 Height: 65 in : [facility] ReadingLocation: Weight: 140 lb : : Gender: Female BSA: 1.7 m2 : :: 1955 Age: 67 yrs BP: 118/76 mmHg: :Reason For Study: Cardiomegaly : :Ordering Physician: TEQUILA, : :CHRIST Performed By: Vasyl Messina : :Referring: CHRIST MANDEL : + + Interpretation Summary The ejection fraction is estimated to be 60-65%. The right ventricle is normal in size and function. Pulmonary artery pressures cannot be estimated because of the lack of a measurable TR jet velocity. The IVC is of normal diameter and collapses greater than 50% with a sniff. This suggests a low right atrial pressure of 3 mm Hg. No significant valvular disease. Procedure: A two-dimensional transthoracic echocardiogram with color flow and Doppler was performed. The study quality was technically adequate. There is no prior echocardiogram noted for this patient. Left Ventricle: The left ventricle is normal in size. Left ventricular wall thickness is at the upper limits of normal. Left ventricular systolic function is normal. The ejection fraction is estimated to be 60-65%. There are no focal wall motion abnormalities. Diastolic parameters suggest probable normal left ventricular diastolic function and normal filling pressures. Right Ventricle: The right ventricle is normal in size and function. Atria: Both atria are normal in size. The interatrial septum grossly appears intact with no obvious evidence for an atrial septal defect. Mitral Valve: The mitral valve is normal in structure and function. There is no mitral regurgitation noted. Aortic Valve: The aortic valve is normal in structure and function. There is no aortic stenosis. No aortic regurgitation is present. Tricuspid Valve: The tricuspid valve is normal in structure and function. There is a trace or physiologic amount of tricuspid regurgitation. Pulmonary artery pressures cannot be estimated because of the lack of a measurable TR jet velocity. Pulmonic Valve: The pulmonic valve is normal in structure and function. There is a trace or physiologic amount of pulmonic regurgitation. Great Vessels: The aortic root is normal size. The dimensions of the ascending aorta are normal. The IVC is of normal diameter and collapses greater than 50% with a sniff. This suggests a low right atrial pressure of 3 mm Hg. Pericardium/ Pleura There is no pericardial effusion. There is no pleural effusion. MMode/2D Measurements & Calculations LVIDd: 4.1 cm LVOT diam: 2.0 cm LVIDs: 2.9 cm Ao root diam: 2.9 cm FS: 29.3 % asc Aorta Diam: 3.2 cm IVSd: 1.1 cm LVPWd: 1.1 cm LV caceres. diameter/BSA (cm/m^2): 2.4 LV sys. diameter/BSA (cm/m^2): 1.7 LA dimension: 2.6 cm RA long axis: 4.2 cm LA A2 area: 12.3 cm2 LA A4 area: 11.7 cm2 LA length (vol): 4.0 cm LA vol: 30.4 ml LA vol index: 17.9 ml/m2 TAPSE_phl: 2.0 cm Doppler Measurements & Calculations Ao V2 max: 113.0 cm/sec LVOT Max Blaine: 110.0 cm/sec Ao V2 mean: 83.7 cm/sec LV V1 max P.8 mmHg Ao max P.0 mmHg LV V1 VTI: 20.6 cm Ao mean P.0 mmHg CECILIA(I,D): 3.0 cm2 Ao V2 VTI: 21.9 cm CECILIA(V,D): 3.1 cm2 sev ratio: 0.94 CECILIA indexed to BSA (cm^2/m^2): 1.7 MV E max blaine: 66.0 cm/sec SV(LVOT): 64.7 ml MV A max blaine: 95.1 cm/sec MV E/A: 0.69 Med Peak E' Blaine: 5.2 cm/sec E/E' med: 12.6 Lat Peak E' Blaine: 8.3 cm/sec E/E' lat: 7.9 E/e' average: 10.3 MV dec time: 0.25 sec AV VR_phl: 0.97 MV P1/2t-pr_phl: 73.0 msec CECILIA(VTI)/BSA_phl: 1.7 Reading Physician:CONNIE
== END ==
PROVIDERS: PCP Registered Nurse Diabetes Educator; Referring Provider Registered Nurse Diabetes Educator; Visit Provider Registered Nurse Diabetes Educator
DX: I51.7 Cardiomegaly (principal)
CPT/HCPCS: 93306

== ENCOUNTER → 2022-05-11 11:38 | Outpatient (CLI) | payer MEDICARE, OTHER, SELFPAY ==
[2022-01-14 22:34] VITALS: BMI 23.6
[2022-05-11 12:51] LABS: Hemoglobin 13.3 g/dL (12.0-16.0)
[2022-05-11 12:58] LABS: Hematocrit 39.1 % (36-46); Mean Corpuscular HGB Conc 34.1 % (30-36); Mean Corpuscular Hemoglobin 27.5 PG (26-34); Mean Corpuscular Volume 80.5 fL (80-100); Platelet Count 388 X10^3/uL (150-400); Red Blood Cell Count 4.86 X10^6/uL (4.0-5.2); Red Cell Distribution Width 14.8 % (11.6-14.8); White Blood Cell Count 6.9 X10^3/uL (4.5-11.0)
[2022-05-11 13:08] LABS: Hemoglobin A1C% w Est Avg Glu 5.9 % (4.0-6.0)
[2022-05-11 13:15] LABS: Alanine Aminotransferase 30 IU/L (<35); Albumin 4.4 g/dL (3.5-5.0); Albumin Globulin Ratio 1.4 (1.0-2.8); Alkaline Phosphatase 74 U/L (38-126); Aspartate Aminotransferase 28 IU/L (14-36); BUN Creatinine Ratio 27.3 (6-22); Bilirubin Total 0.6 mg/dL (0.2-1.3); Blood Urea Nitrogen 18 mg/dL (7-17); Calcium 9.6 mg/dL (8.4-10.2); Carbon Dioxide 31 mmol/L (22-32); Chloride 100 mmol/L (98-107); Cholesterol 172 mg/dL (140-199); Estimated Glomerular Filt Rate > 60 mL/min (>60); Globulin 3.1 g/dL (1.7-4.1); Glucose 96 mg/dL (80-110); HDL Cholesterol 49 mg/dL (40-60); HEMOLYSIS < 15 (0-50); LDL Cholesterol Calculated 93 mg/dL (<100); Potassium 4.5 mmol/L (3.4-5.1); Sodium 140 mmol/L (137-145); Total Protein 7.5 g/dL (6.3-8.2); Triglycerides 150 mg/dL (35-150)
[2022-05-11 13:47] LABS: TSH w/ Reflex to FT4 1.36 uIU/mL (0.47-4.68)
[2022-05-11 15:43] LABS: Creatinine Urine Random 58.9 mg/dL
[2022-05-11 15:57] LABS: Microalbumin Urine Random < 0.6 mg/dL (0-1.6)
== END ==
PROVIDERS: PCP Registered Nurse Diabetes Educator; Referring Provider Registered Nurse Diabetes Educator; Visit Provider Registered Nurse Diabetes Educator
DX: E11.9 Type 2 diabetes mellitus without complications (principal); E78.5 Hyperlipidemia, unspecified
CPT/HCPCS: 36415; 80053; 80061; 82043; 82570; 83036; 84443; 85027

== ENCOUNTER 2022-07-16 18:47 | Emergency (ER) | payer MEDICARE, OTHER, SELFPAY ==
[2022-01-14 22:34] VITALS: BMI 23.6
[2022-07-16 19:19] VITALS: BP 115/64; PULSE 103; RESP 18; TEMP 36.6; O2SAT 97; BMI 22.6
--- NOTE | 2022-07-16 19:19 | DI.RAD.S_ITS ---
PROCEDURE: XR ANKLE RT MIN 3V INDICATIONS: injury TECHNIQUE: 3 views of the ankle were acquired. COMPARISON: None. FINDINGS: Bones: Minimally displaced fracture of the tip of the lateral malleolus. No other fractures or dislocations. Ankle mortise is normally aligned. No suspicious bony lesions. Soft tissues: No tibiotalar joint effusion. Achilles tendon appears normal. IMPRESSION: Minimally displaced fracture of the tip of the lateral malleolus. Dictated by: Malachi Marte M.D. on 07/16/2022 at 19:43 Approved by: Malachi Marte M.D. on 07/16/2022 at 19:44
--- NOTE | 2022-07-16 20:13 | ED.LOWEXIN ---
HPI - Extremity Injury (Lower) General Chief Complaint: Extremity Injury, Lower Stated Complaint: RT ankle injury Time Seen by Provider: 07/16/22 20:12 Source: patient Mode of arrival: Wheelchair History of Present Illness HPI Narrative: Patient is a 67-year-old female who is here evaluation of a right ankle injury. States that earlier today she rolled her right ankle when she was outside walking on uneven ground. She felt/heard a pop. Has been unable to bear weight since then. She reports no other injuries from the event. No interventions prior to arrival. Related Data Home Medications Medication Instructions Recorded Confirmed cholecalciferol (vitamin D3) 10 125 mcg PO DAILY 11/30/18 06/01/22 mcg (400 unit) tablet (Vitamin D3) magnesium oxide 400 mg PO DAILY 09/22/20 06/01/22 Previous Rx's Medication Instructions Recorded ibuprofen 800 mg tablet 800 mg PO TID PRN pain #30 tabs 09/28/20 blood-glucose meter (FreeStyle #1 ea 11/25/21 [place] Lite kit) test strips #100 ea 11/25/21 semaglutide 0.25 mg or 0.5 mg (2 0.25 mg (0.2 mL) SUBCUT QWEEK #1.5 06/02/22 mg/1.5 mL) subcutaneous pen mL injector ([employer]) aspirin 81 mg tablet,delayed 81 mg PO DAILY #90 tabs 06/04/22 release atorvastatin 40 mg tablet 40 mg PO BEDTIME #90 tabs 06/04/22 lancets 33 gauge #100 ea 06/04/22 metformin 1,000 mg tablet,extended 1,000 mg PO DAILY #90 tabs 06/04/22 release 24hr omeprazole 20 mg tablet,delayed 20 mg PO DAILY #90 tabs 06/04/22 release Allergies Allergy/AdvReac Type Severity Reaction Status Date / Time No Known Drug Allergies Allergy Verified 07/16/22 19:21 Review of Systems Constitutional Constitutional: Reports system reviewed and no additional complaints, except as documented Musculoskeletal Musculoskeletal: Reports system reviewed and no additional complaints, except as documented Integumentary/Breasts Skin/Breast: Reports system reviewed and no additional complaints, except as documented Neurologic Neurologic: Reports system reviewed and no additional complaints, except as documented Patient History Medical History Anxiety Depression Diabetes mellitus, type II Diverticulitis Dyslipidemia Elevated BP without diagnosis of hypertension Frequency of urination GERD (gastroesophageal reflux disease) History of ectopic Insomnia Lung collapse Melanoma Osteopenia Seizure Skin cancer Surgical History History of hysterectomy Family History Mother Diabetes mellitus Father Myocardial infarction Sister Diabetes mellitus Sister Diabetes mellitus Brother Diabetes mellitus Social History household members: spouse Smoking Status: Former smoker alcohol intake: current Smoking Status: Former smoker tobacco type: cigarettes alcohol intake frequency: holidays/special occasions only Substance Use Type: does not use Exam Initial Vital Signs Initial Vital Signs: Vital Signs Temperature 98 F 07/16/22 19:19 Pulse Rate 103 H 07/16/22 19:19 Respiratory Rate 18 07/16/22 19:19 Blood Pressure 115/64 07/16/22 19:19 Pulse Oximetry 97 07/16/22 19:19 Oxygen Delivery Method Room Air 07/16/22 19:19 HENMT Head: normal to inspection Neuro Sensory Exam: no sensory deficits noted Extrem Other: Swelling and discomfort to palpation of the right lateral malleolus. No tenderness along the Achilles tendon, medial malleolus, mid foot, dorsum of the foot base of the 5th metatarsal or anterior tibiotalar joint. Procedures Orthopedic Splinting/Casting Injury #1: Side: right Lower Extremity Injury Location: ankle Lower Extremity Immobilizer: boot orthosis Post splinting neuro exam: intact Post splinting vascular exam: intact Placed by: Nursing Course Orders Ordered: ED Orders 07/16/22 19:19 XR ankle RT min 3V Stat Vital Signs Vital signs: Vital Signs - 8 hr 07/16/22 19:19 Temperature 98 F Pulse Rate 103 H Respiratory Rate 18 Blood Pressure 115/64 Pulse Oximetry 97 Oxygen Delivery Method Room Air MDM - Extremity Injury (Lower) Imaging Data Extremity x-ray #1: Radiologist's Impression: PROCEDURE:? XR ANKLE RT MIN 3V ? INDICATIONS:? injury ? TECHNIQUE:? 3 views of the ankle were acquired.? ? COMPARISON:? None. ? FINDINGS:? ? Bones:? Minimally displaced fracture of the tip of the lateral malleolus.? No other fractures or dislocations.? Ankle mortise is normally aligned.? No suspicious bony lesions.? ? Soft tissues:? No tibiotalar joint effusion.? Achilles tendon appears normal.? ? ? IMPRESSION:? Minimally displaced fracture of the tip of the lateral malleolus. MDM Narrative Medical decision making narrative: Patient has an isolated fibula fracture noted on the x-rays. Is neurovascularly intact. Was placed in a boot. Was informed of the findings of the x-ray. Was instructed she needs to follow up with her primary doctor and also Orthopedics. She was given return precautions. She expressed understanding and agreement. Discharge Plan Departure Patient Disposition: Home Clinical Impression: Fibula fracture Instructions: DI for Ankle Fracture, How To Perform RICE (Rest, Ice, Compress, Elevate), How to Use a Walking Boot Activity Restrictions/Additional Instructions: It appears on the x-ray that you have a fracture at the end of your fibula which is the small bone on the outside of your leg/ankle. This injury should not require surgery. You were given an orthopedic boot. You can walk on your leg as tolerated. You can take the boot off in order to shower and also at night to sleep. Also recommend that he use ice over the area. Return to the emergency department for new symptoms. Prescriptions: No Action ibuprofen 800 mg tablet 800 mg PO TID PRN (Reason: pain) Qty: 30 2RF Ozempic 0.25 mg or 0.5 mg(2 mg/1.5 mL) pen injector 0.25 mg SUBCUT QWEEK Qty: 1.5 3RF Rx Instructions: administer 0.25 mg once weekly x 4 weeks; increase dose to 0.5 mg once weekly after 4 weeks magnesium oxide 400 mg magnesium capsule 400 mg PO DAILY (DME) blood-glucose meter [FreeStyle [place] Lite] Kit See Rx Instructions .ROUTE .MEDSUPPLY Qty: 1 0RF Rx Instructions: As directed (DME) test strips See Rx Instructions .Route .MEDSUPPLY Qty: 100 3RF Rx Instructions: As directed to check blood sugar once daily aspirin 81 mg tablet,delayed release (DR/EC) 81 mg PO DAILY Qty: 90 3RF atorvastatin 40 mg tablet 40 mg PO BEDTIME Qty: 90 3RF omeprazole 20 mg tablet,delayed release (DR/EC) 20 mg PO DAILY Qty: 90 3RF metformin 1,000 mg tablet extended release 24 hr 1,000 mg PO DAILY Qty: 90 3RF (DME) lancets 33 gauge misc See Rx Instructions .ROUTE .MEDSUPPLY Qty: 100 3RF Rx Instructions: use to test blood sugar once daily cholecalciferol (vitamin D3) [Vitamin D3] 400 unit Tablet 125 mcg PO DAILY Referrals: oTnia Scott MD [Physician] - Dell Calhoun ARNP [Primary Care Provider] - Stand Alone Forms: Patient Portal/API
== END 2022-07-16 20:41 | disposition home or self-care (01) ==
PROVIDERS: Emergency Provider Emergency Medicine; PCP Registered Nurse Diabetes Educator
DX: S82.401A Unspecified fracture of shaft of right fibula, initial encounter for closed fracture (principal); X50.1XXA Overexertion from prolonged static or awkward postures, initial encounter
CPT/HCPCS: 73610; 99283

== ENCOUNTER → 2022-09-17 09:03 | Outpatient (CLI) | payer MEDICARE, OTHER, SELFPAY ==
[2022-01-14 22:34] VITALS: BMI 23.6
[2022-09-18 07:45] LABS: x Labcorp Estim. Avg Glu (eAG) 120 mg/dL (.); x Labcorp Hemoglobin A1c 5.8 % (4.8-5.6)
== END ==
PROVIDERS: PCP Registered Nurse Diabetes Educator; Referring Provider Registered Nurse Diabetes Educator; Visit Provider Registered Nurse Diabetes Educator
DX: E11.9 Type 2 diabetes mellitus without complications (principal)
CPT/HCPCS: 36415; 82043; 82570; 83036

== ENCOUNTER → 2022-09-29 | Outpatient (CLI) | payer MEDICARE, OTHER, SELFPAY ==
[2022-01-14 22:34] VITALS: BMI 23.6
--- NOTE | 2022-09-29 12:49 | DI.MG.S_ITS ---
BILATERAL DIGITAL SCREENING MAMMOGRAM 3D/2D WITH CAD: 09/29/2022 CLINICAL: Routine screening. Comparison is made to exams dated: 09/02/2020 mammogram - [facility] and 08/25/2018 mammogram - outside location. There are scattered areas of fibroglandular density in both breasts (category b / 25%-50% glandular tissue). Current study was also evaluated with a Computer Aided Detection (CAD) system. No significant masses, calcifications, or other findings are seen in either breast. There has been no significant interval change. IMPRESSION: NEGATIVE There is no mammographic evidence of malignancy. A 1 year screening mammogram is recommended. Based on the Tyrer Cuzick model (a risk assessment model) the patient's lifetime risk is 3.0% and her 10 year risk is 1.6%. According to the ACR, ACS, and NCCN guidelines, an annual breast MRI exam along with mammogram is recommended if the patient's lifetime risk is 20% or greater. This exam was interpreted at Station ID: [id number]. NOTE: For mammograms, a report in lay terms will be sent to the patient. Approximately 15% of breast malignancies will not be visualized mammographically. In the management of a palpable breast mass, a negative mammogram must not discourage biopsy of a clinically suspicious lesion. Electronically Signed By: Quentin mendoza/jarrell:09/29/2022 16:03:26 letter sent: Normal Exam ACR BI-RADS Category 1: Negative [id number]
--- NOTE | 2022-09-29 12:49 | DI.RAD.S_ITS ---
Bone Density Report Name: JOEY ACUNA Age: 67 Sex: Female Ethnicity: White Date of : 1955 Indication: osteopenia; Referring Provider: CHRIST MANDEL Study: Bone densitometry was performed. Exam Date: September 29, 2022 Accession number: [id number] Bone Density: Region BMD T-score Z-score Classification AP Spine(L1-L4) 0.935 -1.0 0.9 Normal Femoral Neck (Left) 0.566 -2.6 -0.9 Osteoporosis Total Hip (Left) 0.683 -2.1 -0.7 Osteopenia Femoral Neck (Right) 0.640 -1.9 -0.2 Osteopenia Total Hip (Right) 0.702 -2.0 -0.6 Osteopenia Total Hip Mean 0.693 -2.1 -0.7 Osteopenia World Health Organization criteria for BMD impression classify patients as: Normal (T-score at or above -1.0), Osteopenia (T-score between -1.0 and -2.5), or Osteoporosis (T-score at or below -2.5). 10-year Fracture Risk: FRAX not reported because: Some T-score for Spine Total or Hip Total or Femoral Neck at or below -2.5 Previous Exams: -- Region Exam Age BMD T-score BMD Change BMD Change Date g/cm2 vs Baseline vs Previous -- AP Spine (L1-L4) 09/29/2022 67 0.935 -1.0 -0.035 (-3.6%)# -0.035 (-3.6%)# 08/27/2020 65 0.970 -0.7 Total Hip(Left) 09/29/2022 67 0.683 -2.1 -0.006 (-0.9%)# -0.006 (-0.9%)# 08/27/2020 65 0.690 -2.1 Total Hip(Right) 09/29/2022 67 0.702 -2.0 -0.014 (-1.9%)# -0.014 (-1.9%)# 08/27/2020 65 0.716 -1.9 -- *Denotes significance at 95% confidence level, LSC for AP Spine = 0.022 g/cm2, LSC for Total Hip = 0.027 g/cm2 # Denotes dissimilar scan types or analysis methods Impression: The patient has osteoporosis, based on the Left Femoral Neck T-score. No significant bone loss was observed. Discussion: INCREASED RISK OF FRACTURE. BONE DENSITY IS UNDESIRABLY LOW AT ONE OR MORE SKELETAL SITES, CONSISTENT WITH POSTMENOPAUSAL OSTEOPOROSIS. This patient's lowest T-score meets the World Health Organization's (WHO) criteria for osteoporosis at one or more sites (T-score -2.5 or below). In untreated patients, the risk of osteoporotic fracture increases approximately two-fold for each 1.0 SD decrease in T-score. Low bone density is not the only risk factor for fracture; also consider factors such as patient's age, frailty or poor health, risk of falling, risk of injury, previous osteoporotic fracture, family history of osteoporosis, cigarette smoking, low body weight, etc. Not everyone with low bone mineral density has osteoporosis; osteomalacia and other metabolic bone disorders should also be considered. Patients who have osteoporosis should be evaluated for specific diseases and conditions (secondary causes) that may cause or contribute to bone loss. The [place] [employer]ocrinologists (AACE) and National Osteoporosis Foundation (NOF) recommend pharmacologic intervention for all postmenopausal women whose T-score is in this range. The patient should follow a healthful lifestyle (good nutrition with adequate calcium and vitamin D, and appropriate weight-bearing exercise). Follow-Up: Consider a repeat BMD and Vertebral Fracture Assessment (VFA) exam in 2 years or sooner if medically necessary, to reassess this patient's status. Reported by: DORETHA GREEN M.D. on 09/29/2022 1:35:00 PM.
== END ==
LOC: RAD 12:49
PROVIDERS: PCP Registered Nurse Diabetes Educator; Referring Provider Registered Nurse Diabetes Educator; Visit Provider Registered Nurse Diabetes Educator
DX: M81.0 Age-related osteoporosis without current pathological fracture (principal); Z12.31 Encounter for screening mammogram for malignant neoplasm of breast; Z78.0 Asymptomatic menopausal state; E11.9 Type 2 diabetes mellitus without complications; E78.5 Hyperlipidemia, unspecified
CPT/HCPCS: 77063; 77067; 77080

== ENCOUNTER → 2022-10-19 16:00 | Outpatient (CLI) | payer MEDICARE, OTHER, SELFPAY ==
[2022-01-14 22:34] VITALS: BMI 23.6
[2022-10-19 18:21] LABS: Alanine Aminotransferase 32 IU/L (<35); Albumin 4.5 g/dL (3.5-5.0); Albumin Globulin Ratio 1.4 (1.0-2.8); Alkaline Phosphatase 89 U/L (38-126); Aspartate Aminotransferase 28 IU/L (14-36); Bilirubin Total 0.7 mg/dL (0.2-1.3); Blood Urea Nitrogen 20 mg/dL (7-17); Calcium 10.3 mg/dL (8.4-10.2); Carbon Dioxide 32 mmol/L (22-32); Chloride 97 mmol/L (98-107); Estimated Glomerular Filt Rate > 60 mL/min (>60); Globulin 3.2 g/dL (1.7-4.1); Glucose 111 mg/dL (80-110); HEMOLYSIS < 15 (0-50); Potassium 4.6 mmol/L (3.4-5.1); Sodium 138 mmol/L (137-145); Total Protein 7.7 g/dL (6.3-8.2)
[2022-10-19 18:32] LABS: Vitamin D 25 Hydroxy (D3) 77.1 ng/mL (30.0-100.0)
== END ==
PROVIDERS: PCP Registered Nurse Diabetes Educator; Referring Provider Registered Nurse Diabetes Educator; Visit Provider Registered Nurse Diabetes Educator
DX: M81.0 Age-related osteoporosis without current pathological fracture (principal)
CPT/HCPCS: 36415; 80053; 82306

== ENCOUNTER → 2022-11-22 17:45 | Outpatient (CLI) | payer MEDICARE, OTHER, SELFPAY ==
[2022-01-14 22:34] VITALS: BMI 23.6
[2022-11-23 14:24] LABS: Ionized Calcium 5.1 mg/dL (4.5-5.6)
[2022-11-24 06:36] LABS: Calcium 10.4 mg/dL (8.7-10.3); Parathyroid Hormone, Intact 23 pg/mL (15-65)
[2022-11-30 14:47] LABS: 1,25-Dihydroxy, Vitamin D-2 <10 pg/mL (.)
== END ==
PROVIDERS: PCP Registered Nurse Diabetes Educator; Referring Provider Registered Nurse Diabetes Educator; Visit Provider Registered Nurse Diabetes Educator
DX: E83.52 Hypercalcemia (principal)
CPT/HCPCS: 82310; 82330; 82397; 82652; 83970

== ENCOUNTER 2023-01-29 11:55 | Emergency (ER) | payer OTHER, MEDICARE, SELFPAY ==
[2022-01-14 22:34] VITALS: BMI 23.6
[2023-01-29] VITALS (10 sets, daily range): BP systolic 110–144; BP diastolic 60–83; PULSE 88–98; RESP 16–18; TEMP 36.9; O2SAT 93–99; BMI 23.9
--- NOTE | 2023-01-29 12:02 | DI.RAD.S_ITS ---
PROCEDURE: XR CHEST 1V INDICATIONS: trauma TECHNIQUE: One view of the chest was acquired. COMPARISON: [facility], CR, XR CHEST 1V, 01/14/2022, 20:14. FINDINGS: Surgical changes and devices: None. Lungs and pleura: Lungs are clear. No pleural effusions or pneumothorax. Mediastinum: Mediastinal contours appear normal. Heart size is normal. Bones and chest wall: No suspicious bony lesions. Overlying soft tissues appear unremarkable. IMPRESSION: No acute cardiopulmonary findings Approved by: Wali Coffey M.D. on 01/29/2023 at 11:49
--- NOTE | 2023-01-29 12:02 | DI.CT.S_ITS ---
PROCEDURE: CT HEAD/BRAIN WO CON INDICATIONS: trauma TECHNIQUE: Noncontrast 4.5 mm thick angled axial sections acquired from the foramen magnum to the vertex, with coronal and sagittal reformats. For radiation dose reduction, the following was used: automated exposure control, adjustment of mA and/or kV according to patient size. COMPARISON: None. FINDINGS: Image quality: Excellent. CSF spaces: Basal cisterns are patent. No extra-axial fluid collections. Ventricles are normal in size and shape. Brain: No midline shift. No intracranial masses or hemorrhage. Parrish-white matter interface is normal. Skull and face: Calvarium and visualized facial bones are intact, without suspicious lesions. Sinuses: Visualized sinuses and mastoids are clear. IMPRESSION: Unremarkable CT of the brain. Approved by: Wali Coffey M.D. on 01/29/2023 at 12:14
--- NOTE | 2023-01-29 12:02 | DI.CT.S_ITS ---
PROCEDURE: CT CERVICAL SPINE WO CON INDICATIONS: trauma TECHNIQUE: Noncontrast 3 mm thick sections acquired from the skull base to the T4 level. Sagittal and coronal reformats were then constructed. For radiation dose reduction, the following was used: automated exposure control, adjustment of mA and/or kV according to patient size. COMPARISON: None. FINDINGS: Image quality: Excellent. Bones: No fractures or dislocations. Visualized superior ribs are intact. Mild arthritic facet arthropathy noted. No central or foraminal stenosis. Soft tissues: Prevertebral soft tissues are normal in thickness. No paravertebral hematomas. No apical pneumothoraces. IMPRESSION: Unremarkable CT cervical spine without fracture or traumatic malalignment Approved by: Wali Coffey M.D. on 01/29/2023 at 12:24
--- NOTE | 2023-01-29 12:02 | DI.CT.S_ITS ---
PROCEDURE: CT CHEST ABD PEL W CON INDICATIONS: trauma TECHNIQUE: After the administration of intravenous contrast, 5 mm thick sections acquired from the lung apices to the symphysis. 5 mm coronal and sagittal reformats were performed, with additional 7 mm MIP reformats through the lungs. For radiation dose reduction, the following was used: automated exposure control, adjustment of mA and/or kV according to patient size. COMPARISON: None. FINDINGS: Chest: Cardiovascular: Heart size is normal. No evidence of pulmonary embolism, aortic aneurysm or dissection. Lungs and pleural spaces: The lung chapman are clear without nodule, infiltrate or interstitial prominence. Pleural spaces show no effusion or pneumothorax. Lymph nodes: No mediastinal, hilar or axillary adenopathy. Mediastinum: Unremarkable. No hiatal hernia. Thyroid within normal limits. Chest Wall and Bones: Unremarkable. No acute fracture. Abdomen and Pelvis: Liver: Normal in size and attenuation. No contour deformity present. Biliary system: Calcified stones noted in the lumen of the gallbladder. No pericholecystic inflammatory change. No intra or extrahepatic bile duct dilation. Pancreas: Unremarkable without mass or inflammation evident. Spleen: Normal in size and density. Adrenals: Normal morphology and density. Reproductive system: Unremarkable as visualized. Urinary system: Normal renal size and attenuation. No renal calculi, hydronephrosis, or solid mass present. Urinary bladder unremarkable. Gastrointestinal system: The bowel is unremarkable with no evidence of bowel obstruction or inflammation. The stomach appears unremarkable. Appendix: No findings to suggest acute appendicitis. Lymph nodes: No mesenteric or retroperitoneal adenopathy. Peritoneal spaces: No free air. No free fluid. Vasculature: Aortic atherosclerotic vascular calcification noted without evidence of aneurysm. Abdominal wall: Abdominal wall intact without evidence of ventral or inguinal hernias. Musculoskeletal: Normal bone mineralization. No acute fractures. IMPRESSION: 1. No acute CT findings in the chest abdomen and pelvis. No evidence of solid organ or vascular injury. No fractures. 2. Chronic findings as above Approved by: Wali Coffey M.D. on 01/29/2023 at 12:48
[2023-01-29] MEDS: MORPHINE 2 MG/ML INJ IV (12:06)
[2023-01-29 12:14] LABS: Add Manual Diff / Slide Review NO; Basophils Absolute Auto 0 /uL (0-100); Basophils Percent Auto 0.5 % (0-2); Eosinophils Absolute Auto 100 /uL (0-450); Eosinophils Percent Auto 1.2 % (2-4); Hematocrit 37.6 % (36-46); Lymphocytes Absolute Auto 2000 /uL (1100-4500); Lymphocytes Percent Auto 21.7 % (25-40); Mean Corpuscular HGB Conc 34.6 % (30-36); Mean Corpuscular Hemoglobin 28.8 PG (26-34); Mean Corpuscular Volume 83.1 fL (80-100); Monocytes Absolute Auto 500 /uL (0-900); Monocytes Percent Auto 5.8 % (3-14); Neutrophils Absolute Auto 6500 /uL (1500-7000); Neutrophils Percent Auto 70.8 % (50-75); Platelet Count 349 X10^3/uL (150-400); Red Blood Cell Count 4.52 X10^6/uL (4.0-5.2); Red Cell Distribution Width 13.9 % (11.6-14.8); White Blood Cell Count 9.1 X10^3/uL (4.5-11.0)
[2023-01-29] MEDS: ONDANSETRON 4 MG/2 ML INJ IV (12:17)
[2023-01-29 12:26] LABS: Alanine Aminotransferase 45 IU/L (<35); Albumin 4.1 g/dL (3.5-5.0); Albumin Globulin Ratio 1.4 (1.0-2.8); Alkaline Phosphatase 75 U/L (38-126); Aspartate Aminotransferase 53 IU/L (14-36); BUN Creatinine Ratio 26.2 (6-22); Bilirubin Total 0.3 mg/dL (0.2-1.3); Blood Urea Nitrogen 17 mg/dL (7-17); Calcium 9.7 mg/dL (8.4-10.2); Carbon Dioxide 29 mmol/L (22-32); Chloride 103 mmol/L (98-107); Creatine Kinase 69 U/L (30-135); Estimated Glomerular Filt Rate > 60 mL/min (>60); Glucose 129 mg/dL (80-110); HEMOLYSIS < 15 (0-50); Lipase 419 U/L (23-300); Potassium 4.1 mmol/L (3.4-5.1); Sodium 138 mmol/L (137-145); Total Protein 7.1 g/dL (6.3-8.2)
[2023-01-29 12:37] LABS: Troponin I < 0.012 ng/mL (0.01-0.034)
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
--- NOTE | 2023-01-29 13:03 | DI.RAD.S_ITS ---
PROCEDURE: XR ANKLE RT MIN 3V INDICATIONS: pain swelling TECHNIQUE: 3 views of the ankle were acquired. COMPARISON: [facility], CR, XR ANKLE RT MIN 3V, 07/16/2022, 19:22. FINDINGS: Bones: Old injury involving tip of lateral malleolus is seen. No acute ankle fracture or dislocation. Ankle mortise is normally aligned. No suspicious bony lesions. Soft tissues: No tibiotalar joint effusion. Achilles tendon appears normal. IMPRESSION: No acute ankle fracture or dislocation. Old injury involving tip of lateral malleolus. Dictated by: Rupesh Harrison M.D. on 01/29/2023 at 13:20 Approved by: Rupesh Harrison M.D. on 01/29/2023 at 13:20
[2023-01-29] MEDS: KETOROLAC 30 MG/ML VIAL 15 MG IV (14:58)
== END 2023-01-29 15:19 | disposition home or self-care (01) ==
PROVIDERS: Emergency Provider Emergency Medicine; PCP Registered Nurse Diabetes Educator
DX: S16.1XXA Strain of muscle, fascia and tendon at neck level, initial encounter (principal); M25.571 Pain in right ankle and joints of right foot; S93.401A Sprain of unspecified ligament of right ankle, initial encounter; R07.89 Other chest pain; V89.2XXA Person injured in unspecified motor-vehicle accident, traffic, initial encounter
CPT/HCPCS: 70450; 71045; 71260; 72125; 73610; 74177; 80053; 82550; 83690; 84484; 85025; 93005; 93010; 96374; 96375; 99283; 99284; J1885; J2270; J2405; Q9967

== ENCOUNTER → 2023-02-09 17:00 | Outpatient (CLI) | payer OTHER, SELFPAY ==
[2022-01-14 22:34] VITALS: BMI 23.6
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
== END ==
PROVIDERS: PCP Registered Nurse Diabetes Educator; Referring Provider Registered Nurse Diabetes Educator; Visit Provider Registered Nurse Diabetes Educator
DX: S82.51XA Displaced fracture of medial malleolus of right tibia, initial encounter for closed fracture (principal); M25.571 Pain in right ankle and joints of right foot; X58.XXXA Exposure to other specified factors, initial encounter
CPT/HCPCS: 73610

== ENCOUNTER → 2023-02-13 11:16 | Outpatient (CLI) | payer OTHER, MEDICARE, SELFPAY ==
[2022-01-14 22:34] VITALS: BMI 23.6
--- NOTE | 2023-02-13 11:19 | DI.CT.S_ITS ---
PROCEDURE: CT ANKLE RIGHT WITHOUT CON INDICATIONS: Displaced pilon fracture of right tibia TECHNIQUE: Noncontrast 1-1.5 mm axial sections acquired from above the tibiotalar joint to the bottom of the calcaneus, with coronal and sagittal reformats. COMPARISON: [facility], CR, XR ANKLE RT MIN 3V, 01/29/2023, 13:06. [facility], CR, XR ANKLE RT MIN 3V, 02/09/2023, 17:05. FINDINGS: Image quality: Excellent. Bones: Oblique fracture is seen at the anterior medial aspect of the distal tibia extending to the mortise joint. There is approximately 2 mm medial and anterior displacement of the distal fracture fragment and 1-2 mm step-off at the tibiotalar articular surface. Tiny osseous fragments are seen adjacent to the tip of the distal fibula, which are of uncertain chronicity. Small posterior and plantar calcaneal enthesophytes. Soft tissues: Left soft tissue edema is seen surrounding the ankle. The articular cartilages, ligaments, and tendons are not well evaluated with standard CT. The musculature surrounding the ankle is normal in bulk. IMPRESSION: 1. Oblique intra-articular fracture at the anterior medial aspect of the distal tibia including the medial malleolus. There is minimal displacement and 1-2 mm step-off at the articular surface. 2. Tiny osseous fragments at the distal tip of the fibula are most likely related to prior avulsion injuries of uncertain age, possibly subacute. Approved by: Quentin Davis M.D. on 02/13/2023 at 14:23
== END ==
PROVIDERS: PCP Registered Nurse Diabetes Educator; Referring Provider Orthopaedic Surgery; Visit Provider Orthopaedic Surgery
DX: S82.871A Displaced pilon fracture of right tibia, initial encounter for closed fracture (principal); X58.XXXA Exposure to other specified factors, initial encounter
CPT/HCPCS: 73700

== ENCOUNTER 2023-02-17 06:37 | Day surgery (SDC) | payer MEDICARE, OTHER, SELFPAY ==
[2022-01-14 22:34] VITALS: BMI 23.6
[2023-02-15 08:19] VITALS: BMI 24.0
[2023-02-17] VITALS (14 sets, daily range): BP systolic 129–160; BP diastolic 59–82; PULSE 72–100; RESP 12–22; TEMP 36.1–36.9; O2SAT 90–99; BMI 24.0
--- NOTE | 2023-02-17 | DI.RAD.S_ITS ---
PROCEDURE: XR ANKLE RT MIN 3V INDICATIONS: RT ANKLE SURGERY TECHNIQUE: Two intraoperative views of the ankle were acquired. COMPARISON: [facility], CR, XR ANKLE RT MIN 3V, 02/09/2023, 17:05. [facility], CR, XR ANKLE RT MIN 3V, 01/29/2023, 13:06. FINDINGS: Intraoperative views of the ankle during distal tibia ORIF. Hardware appears intact. IMPRESSION: Intraoperative fluoroscopic images during distal tibia ORIF with intact hardware. Dictated by: Emeka Mcadams M.D. on 02/17/2023 at 11:19 Approved by: Emeka Mcadams M.D. on 02/17/2023 at 11:21
--- NOTE | 2023-02-17 07:32 | PM.HP.1 ---
History of Present Illness History of Present Illness Date Patient Seen: 02/17/23 Time Patient Seen: 07:32 Chief complaint: SDC Narrative: This is a 68-year-old female who had a fall sustaining a left pilon fracture. She has been nonweightbearing since. Previously discussed surgery over the phone with her. She is not had any recent nausea, vomiting, diarrhea, fevers, chills or any other constitutional symptoms. No other complaints at this time. [facility] Medical History Osteoporosis Insomnia Osteopenia Elevated BP without diagnosis of hypertension Melanoma Dyslipidemia Seizure Lung collapse History of ectopic Skin cancer Depression Anxiety Frequency of urination Diabetes mellitus, type II Diverticulitis GERD (gastroesophageal reflux disease) Surgical History History of hysterectomy Family History Mother Diabetes mellitus Father Myocardial infarction Sister Diabetes mellitus Sister Diabetes mellitus Brother Diabetes mellitus Social History household members: spouse Smoking Status: Former smoker alcohol intake: current Meds Home Medications and Allergies Home Medications Medication Instructions Recorded Confirmed Type ibuprofen 800 mg tablet 800 mg PO TID PRN pain #30 tabs 09/28/20 02/17/23 Rx blood-glucose meter (FreeStyle #1 ea 11/25/21 12/29/22 Rx S [place] Lite kit) aspirin 81 mg tablet,delayed 81 mg PO DAILY #90 tabs 06/04/22 02/17/23 Rx release atorvastatin 40 mg tablet 40 mg PO BEDTIME #90 tabs 06/04/22 02/17/23 Rx lancets 33 gauge #100 ea 06/04/22 12/29/22 Rx metformin 1,000 mg tablet,extended 1,000 mg PO DAILY #90 tabs 06/04/22 02/17/23 Rx release 24hr omeprazole 20 mg tablet,delayed 20 mg PO DAILY #90 tabs 06/04/22 02/17/23 Rx release metronidazole 0.75 % topical cream 1 applic topical BID 12/29/22 02/17/23 History semaglutide 2 mg/dose (8 mg/3 mL) 2 mg (0.75 mL) SUBCUT QWEEK #9 mL 12/29/22 02/17/23 Rx subcutaneous pen injector (Ozempic) nirmatrelvir 300 mg (150 mg See Rx Instructions PO .COMPLEX 01/04/23 Rx x2)-ritonavir 100 mg tablet,dose #30 ea pack (Paxlovid) hydrocodone 5 mg-acetaminophen 325 1 tab PO Q6H PRN pain #10 tabs 02/06/23 02/17/23 Rx mg tablet test strips #100 ea 02/06/23 Rx Allergies Allergy/AdvReac Type Severity Reaction Status Date / Time latex Allergy Verified 02/17/23 07:15 Review of Systems Review of Systems ROS: Yes All systems reviewed with the patient and are negative except as otherwise documented Exam Narrative Exam Narrative: HEENT: Head atraumatic eyes anicteric moist mucous membranes Cardiovascular: Palpable peripheral pulses extremities are warm and well perfused Respiratory: Breathing comfortably on room air Psychiatric: Appropriate mood and affect Neuro: No acute deficits Musculoskeletal: Pain to palpation over the medial malleolus. Sensation intact to light touch in sural, saphenous, superficial peroneal, deep peroneal and tibial nerve distributions. Objective Imaging CT ankle: My impression: Intra-articular pilon fracture involving the medial distal tibia Assessment & Plan Assessment & Plan narrative: Assessment: 68-year-old female with right pilon Plan: Discussed ORIF right ankle. Risks and benefits of surgery were discussed again including the risk of infection, damage to internal structures, bleeding, nerve injury, instability, need for revision surgery, blood clots, anesthesia and . No guarantees were made regarding outcomes. Patient expressed understanding and accepted these risks and wished to go forward with surgery and consent was signed. Her right lower extremity was marked with my initials.
[2023-02-17] MEDS: LACTATED RINGERS 1,000 ML 42 ML IV (07:35)
[2023-02-17] MEDS: CEFAZOLIN 2 GM/100 ML PREMIX 100 ML IV (07:52)
--- NOTE | 2023-02-17 08:17 | SUR.OPER ---
Supine on padded OR bed, head on pillow, arms secured on padded arm boards at <90 degrees abduction, legs uncrossed, safety belt at thigh, tape over blanket over lower legs.
[2023-02-17] MEDS: BUPIVACAINE 0.5% (PF) 30 ML VIAL INJ (08:25)
[2023-02-17] MEDS: fentaNYL 100 MCG/2 ML INJ IV (09:24)
[2023-02-17] MEDS: ACETAMINOPHEN IV 1,000 MG/100 ML VIAL 400 MG IV (09:26)
[2023-02-17] MEDS: OXYCODONE IR 5 MG TABLET PO ×2 (09:26→09:58)
[2023-02-17] MEDS: ONDANSETRON 4 MG/2 ML INJ IV (09:27)
--- NOTE | 2023-02-17 09:29 | P.OP_ITS ---
Operative Date/Time/Diagnoses Date of procedure: 02/17/23 Time of procedure: 09:29 Pre-op diagnosis: Right intra-articular pilon fracture Post-op diagnosis: same Procedure & Clinicians Procedure: Operative fixation right pilon fracture Same procedure as scheduled: Yes Indications: This is a 68-year-old female who had a ground level fall sustaining a right pilon fracture. She has been in a short walking boot and nonweightbearing since. Indications were discussed with her including restoring the articular surface and providing staple weight-bearing joint. Risks and benefits of surgery were discussed again including the risk of infection, damage to internal structures, bleeding, nerve injury, instability, need for revision surgery, bl ood clots, anesthesia and . No guarantees were made regarding outcomes. Patient expressed understanding and accepted these risks and wished to go forward with surgery and consent was signed. Surgeon: Marek Hicks Click Yes if Unassisted: Yes Anesthesia Type: General Operative Notes Findings: intra-articular pilon (medial tibia) as seen on imaging and under fluoroscopy Closure Type: primary Specimen(s): none sent Prosthetic devices, grafts, tissues, transplants, or devices: Six hole 1/3 recon plate Estimated Blood Loss (mL): 5 Blood products transfused: none Tourniquet time (min): 47 Procedure in detail: Procedure: The patient was met in the preoperative holding area and we again discussed the risks and benefits of surgery. My initials were marked on the correct right lower extremity. The patient was brought back to the operating room and transferred to the operating table. Smooth induction of anesthesia was performed. A time-out was then performed confirming the correct operative extremity with my initials. A tourniquet was applied to the upper thigh. Standard sterile prep was done with chlorhexidine. Appropriate dry time was observed. An Esmarch was used and the tourniquet was inflated to 250 mmHg. A direct medial approach was taken to the medial malleolus. A transverse fracture was encountered. The fracture edges were cleaned. The saphenous vein was over the fracture site and was cauterized. The posterior tibialis tendon was noted to be posteriorly along the posterior border of the tibia. This was protected throughout the remainder of the case. The fracture was clamped into place and reduced well with a Mancia clamp. A 1/3 recon plate, 6 holes, was then selected and placed over the fracture site. Starting proximally 3 separate nonlocking screws were placed which added compression in buttress format. Last, a nonlocking 3.5 mm screw was placed through the plate and the fracture in lag by technique. This provided excellent compression and the fracture was reduced and stabilized this way. Wounds were irrigated thoroughly and local bupivacaine was placed. Wounds were then Closed with 2-0 Vicryl and 3-0 Monocryl and Steri-Strips and dressed with Xeroform, 4x4s cast padding and then placed into a well-padded splint the patient awoke from anesthesia and was transported to the postoperative recovery unit without any issues Complications: none Post-operative Condition: stable Disposition: PACU Plan for aftercare: Plan: Touchdown x6 weeks, we will progress weight-bearing at 6 week cathi. Must remain in her walking boot even at night for the 1st 4 weeks. Dressings to come off at her 1st postoperative visit in clinic in 2 weeks.
[2023-02-17] MEDS: hydrOXYzine 50 MG/ML INJ 25 MG IM (09:30)
[2023-02-17] MEDS: fentaNYL 100 MCG/2 ML INJ 50 MCG IV (09:34)
[2023-02-17] MEDS: HYDROMORPHONE 1 MG INJ IV (09:51)
--- NOTE | 2023-02-17 10:11 | SUR.PHASEI ---
Pt told RN that she is going to [place] that Dr. Laws knows she is going on a trip . It is a 5 hour trip . Instructed pt that it may not be the best idea and to make sure she is taking her aspirin and that she has to keep her leg elevated. RN told her she is at a higher risk for blood clot not moving around.
== END 2023-02-17 11:13 | disposition home or self-care (01) ==
PROVIDERS: PCP Registered Nurse Diabetes Educator; Referring Provider Orthopaedic Surgery; Visit Provider Orthopaedic Surgery
PROC: 0QSG04Z Reposition Right Tibia with Internal Fixation Device, Open Approach (ICD-10-PCS; CPT 27827; principal; 2023-02-17 07:45)
DX: S82.871A Displaced pilon fracture of right tibia, initial encounter for closed fracture (principal); W18.30XA Fall on same level, unspecified, initial encounter
CPT/HCPCS: 27827; 73610; 76000; 82962; J0131; J0690; J1100; J1170; J2250; J2405; J2704; J3010; J3410; J3490

== ENCOUNTER → 2023-09-13 08:54 | Outpatient (CLI) | payer MEDICARE, OTHER, SELFPAY ==
[2022-01-14 22:34] VITALS: BMI 23.6
[2023-09-13 10:25] LABS: Hemoglobin A1C% w Est Avg Glu 5.6 % (4.0-6.0)
[2023-09-13 11:01] LABS: Vitamin D 25 Hydroxy (D3) 46.5 ng/mL (30.0-100.0)
== END ==
PROVIDERS: PCP Registered Nurse Diabetes Educator; Referring Provider Registered Nurse Diabetes Educator; Visit Provider Registered Nurse Diabetes Educator
DX: E11.9 Type 2 diabetes mellitus without complications (principal); E83.52 Hypercalcemia
CPT/HCPCS: 36415; 82306; 82310; 82652; 83036

== ENCOUNTER → 2023-12-09 10:55 | Outpatient (CLI) | payer MEDICARE, OTHER, SELFPAY ==
[2022-01-14 22:34] VITALS: BMI 23.6
[2023-12-09 11:22] LABS: Hematocrit 38.7 % (36-46); Hemoglobin 13.2 g/dL (12.0-16.0); Mean Corpuscular Hemoglobin 28.5 PG (26-34); Mean Corpuscular Volume 83.7 fL (80-100); Platelet Count 379 X10^3/uL (150-400); Red Blood Cell Count 4.63 X10^6/uL (4.0-5.2); White Blood Cell Count 7.3 X10^3/uL (4.5-11.0)
[2023-12-09 11:29] LABS: Hemoglobin A1C% w Est Avg Glu 5.5 % (4.0-6.0)
[2023-12-09 11:35] LABS: Alanine Aminotransferase 32 IU/L (<35); Albumin 4.3 g/dL (3.5-5.0); Albumin Globulin Ratio 1.5 (1.0-2.8); Alkaline Phosphatase 76 U/L (38-126); Aspartate Aminotransferase 34 IU/L (14-36); BUN Creatinine Ratio 41.9 (6-22); Bilirubin Total 0.5 mg/dL (0.2-1.3); Blood Urea Nitrogen 26 mg/dL (7-17); Calcium 9.7 mg/dL (8.4-10.2); Carbon Dioxide 29 mmol/L (22-32); Chloride 102 mmol/L (98-107); Cholesterol 151 mg/dL (140-199); Estimated Glomerular Filt Rate > 60 mL/min (>60); Globulin 2.9 g/dL (1.7-4.1); Glucose 115 mg/dL (80-110); HDL Cholesterol 39 mg/dL (40-60); HEMOLYSIS < 15 (0-50); LDL Cholesterol Calculated 80 mg/dL (<100); Potassium 4.7 mmol/L (3.4-5.1); Sodium 137 mmol/L (137-145); Total Protein 7.2 g/dL (6.3-8.2); Triglycerides 158 mg/dL (35-150)
[2023-12-09 11:45] LABS: Microalbumin Urine Random < 0.6 mg/dL (0-1.6)
[2023-12-09 12:04] LABS: TSH w/ Reflex to FT4 1.18 uIU/mL (0.47-4.68)
== END ==
PROVIDERS: PCP Registered Nurse Diabetes Educator; Referring Provider Registered Nurse Diabetes Educator; Visit Provider Registered Nurse Diabetes Educator
DX: E11.9 Type 2 diabetes mellitus without complications (principal); M81.0 Age-related osteoporosis without current pathological fracture; E78.5 Hyperlipidemia, unspecified; R03.0 Elevated blood-pressure reading, without diagnosis of hypertension
CPT/HCPCS: 36415; 80053; 80061; 82043; 82306; 82570; 83036; 84443; 85027

== ENCOUNTER 2024-03-19 09:45 | Day surgery (SDC) | payer MEDICARE, OTHER, SELFPAY ==
[2022-01-14 22:34] VITALS: BMI 23.6
[2024-03-19 11:24] VITALS: BP 124/80; PULSE 89; RESP 20; TEMP 36.6; O2SAT 96
--- NOTE | 2024-03-19 11:26 | SUR.PREOP ---
1110 pt c/o feeling light headed, vs wnl poc bg 64, discussed with procurement forester, verbal order received for ivf and iv gluc, pt declined iv gluc states she is concerned r/t don't want it to spike, plan made with pt to reassess after rest/ivf
--- NOTE | 2024-03-19 12:07 | PM.HP.1 ---
History of Present Illness History of Present Illness Date Patient Seen: 03/19/24 Time Patient Seen: 12:07 Chief complaint: SDC Narrative: 69-year-old woman personal history of colonic polyps here for screening colonoscopy. Last colonoscopy 5 years ago. No family history of colon cancer no abdominal concerns today. [facility] Medical History Osteoporosis Insomnia Osteopenia Elevated BP without diagnosis of hypertension Melanoma Dyslipidemia Seizure Lung collapse History of ectopic Skin cancer Depression Anxiety Frequency of urination Diabetes mellitus, type II Diverticulitis GERD (gastroesophageal reflux disease) Surgical History History of hysterectomy Family History Mother Diabetes mellitus Father Myocardial infarction Sister Diabetes mellitus Sister Diabetes mellitus Brother Diabetes mellitus Social History household members: spouse Smoking Status: Former smoker alcohol intake: current Meds Home Medications and Allergies Home Medications Medication Instructions Recorded Confirmed Type blood-glucose meter (FreeStyle #1 ea 11/25/21 12/12/23 Rx [place] Lite kit) lancets 33 gauge #100 ea 06/04/22 12/12/23 Rx metronidazole 0.75 % topical cream 1 applic topical BID 12/29/22 12/12/23 History blood sugar diagnostic (FreeStyle #10 ea 09/18/23 12/12/23 History Lite Strips) alendronate 70 mg tablet (Fosamax) 70 mg PO QWEEK #12 tabs 12/12/23 12/12/23 Rx aspirin 81 mg tablet,delayed 81 mg PO DAILY #90 tabs 12/12/23 12/12/23 Rx release atorvastatin 40 mg tablet 40 mg PO BEDTIME #90 tabs 12/12/23 12/12/23 Rx ibuprofen 800 mg tablet 800 mg PO BID PRN pain #90 tabs 12/12/23 12/12/23 Rx metformin 500 mg tablet,extended 500 mg PO BID #180 tabs 12/12/23 12/12/23 Rx release 24 hr omeprazole 20 mg tablet,delayed 20 mg PO DAILY #90 tabs 12/12/23 12/12/23 Rx release semaglutide 2 mg/dose (8 mg/3 mL) 2 mg (0.75 mL) SUBCUT QWEEK #9 mL 12/12/23 12/12/23 Rx subcutaneous pen injector (Ozempic) test strips #100 ea 12/12/23 12/12/23 Rx sodium,potassium,mag sulfates 17.5 See Rx Instructions PO .COMPLEX 03/15/24 Rx gram-3.13 gram-1.6 gram oral soln #354 mL (Suprep Bowel Prep Kit) Allergies Allergy/AdvReac Type Severity Reaction Status Date / Time latex Allergy Verified 12/12/23 16:31 Exam Vital Signs (past 8 hours): - 03/19/24 11:24 Temperature 97.9 F Pulse Rate 89 Respiratory Rate 20 Blood Pressure 124/80 Pulse Oximetry 96 Oxygen Delivery Method Room Air Oxygen Delivery Method Room Air Narrative Exam Narrative: General adult woman alert oriented no acute distress Chest nonlabored respiration Extremities warm well perfused Assessment & Plan Assessment and plan (1) Personal history of colonic polyps: Status: Acute Assessment & Plan narrative: The patient requires colorectal screening and colonoscopy is recommended. Technical details were discussed. Risks, benefits, alternatives explained. Risks including but not limited to myocardial infarction, aspiration, bleeding, pain, missed lesion, incomplete examination, need for further radiographic studies, intestinal injury, and need for major abdominal surgery were discussed. All questions were answered to their satisfaction, and they are in agreement with this plan. Time-Based Coding :: [TOTAL MINUTES] spent with patient and on the chart (including review of chart, obtaining history, exam, reviewing outside data, placing orders, documenting exam and treatment plan, and counseling patient) on [DATE].
--- NOTE | 2024-03-19 12:29 | P.OP.COLON_ITS ---
Operative Date/Time/Diagnoses Date of procedure: 03/19/24 Time of procedure: 12:29 Pre-op diagnosis: Colorectal screening Procedure & Clinicians Study performed: Screening colonoscopy Same procedure as scheduled: Yes Indications: Screening Surgeon: Alfredo Cuevas Procedure Notes Procedure in detail: The history and physical was performed/updated and the patient is ASA class is 2. The procedure was discussed in detail with the patient. Potential risks complications including infection, bleeding, missed diagnosis, perforation, need for surgery, and were explained. Their questions were answered and informed consent was obtained. Patient was brought to the procedure room and placed standard monitoring equipment. The patient's vital signs were monitored continuously throughout the entire procedure. Prior to starting time-out was performed. The patient was placed in the left lateral recumbent position. Procedural sedation was administered by anesthesia. Examination began with a thorough inspection of the perianal area there was no evidence of fissures, fistulae, external hemorrhoids or cutaneous malignancy. The colonoscopy scope was then placed into the anal canal and was advanced to the cecum, which was identified by the ileocecal valve, the appendiceal orifice and the confluence of the taenia. The scope was then slowly withdrawn examining colon thoroughly in all directions, irrigating it of any residual stool. The scope was retroflexed within the rectum The patient tolerated the procedure well. They will be discharged once criteria are met. The prep was of good/excellent quality. The withdrawl time was 6 minutes. FINDINGS * Mild diverticulosis of distal colon otherwise unremarkable colonoscopy without mass or polyps * Internal hemorrhoids Specimen(s): none sent Impression: Diverticulosis Post-procedure Recommendations: High fiber diet Plan for aftercare: No need for further colonoscopy unless symptomatic Disposition: same day surgery
[2024-03-19 12:31] VITALS: BP 107/47; PULSE 92; RESP 15; TEMP 36.3; O2SAT 97
[2024-03-19 12:36] VITALS: BP 104/68; PULSE 901; RESP 17; O2SAT 98
[2024-03-19 12:41] VITALS: BP 114/60; PULSE 98; RESP 19; O2SAT 97
[2024-03-19 12:51] VITALS: BP 125/60; PULSE 88; RESP 16; TEMP 36.3; O2SAT 98
== END 2024-03-19 13:07 | disposition home or self-care (01) ==
PROVIDERS: PCP Registered Nurse Diabetes Educator; Referring Provider Surgery; Visit Provider Surgery
PROC: 0DJD8ZZ Inspection of Lower Intestinal Tract, Via Natural or Artificial Opening Endoscopic (ICD-10-PCS; CPT 45378; principal; 2024-03-19 11:15)
DX: Z12.11 Encounter for screening for malignant neoplasm of colon (principal); Z87.891 Personal history of nicotine dependence; Z86.0100 Personal history of colon polyps, unspecified; K57.30 Diverticulosis of large intestine without perforation or abscess without bleeding; K64.8 Other hemorrhoids
CPT/HCPCS: G0105; 82962; J2704

== ENCOUNTER → 2024-03-23 10:22 | Outpatient (CLI) | payer MEDICARE, OTHER, SELFPAY ==
[2022-01-14 22:34] VITALS: BMI 23.6
--- NOTE | 2024-03-23 10:23 | DI.MG.S_ITS ---
BILATERAL DIGITAL SCREENING MAMMOGRAM 3D/2D WITH CAD: 03/23/2024 CLINICAL: Routine screening. Comparison is made to exams dated: 09/29/2022 mammogram, 09/02/2020 mammogram - [facility], and 08/25/2018 mammogram - outside location. There are scattered areas of fibroglandular density (category b / 25%-50% glandular tissue). Current study was also evaluated with a Computer Aided Detection (CAD) system. No significant masses, calcifications, or other findings are seen in either breast. There has been no significant interval change. IMPRESSION: NEGATIVE There is no mammographic evidence of malignancy. A 1 year screening mammogram is recommended. Based on the Tyrer Cuzick model (a risk assessment model) the patient's lifetime risk is 2.7% and her 10 year risk is 1.6%. According to the ACR, ACS, and NCCN guidelines, an annual breast MRI exam along with mammogram is recommended if the patient's lifetime risk is 20% or greater. This exam was interpreted at Station ID: [id number]. NOTE: For mammograms, a report in lay terms will be sent to the patient. Approximately 15% of breast malignancies will not be visualized mammographically. In the management of a palpable breast mass, a negative mammogram must not discourage biopsy of a clinically suspicious lesion. Electronically Signed By: Shady joe/jarrell:03/23/2024 23:17:37 letter sent: Normal Exam ACR BI-RADS Category 1: Negative
== END ==
PROVIDERS: PCP Registered Nurse Diabetes Educator; Referring Provider Registered Nurse Diabetes Educator; Visit Provider Registered Nurse Diabetes Educator
DX: Z12.31 Encounter for screening mammogram for malignant neoplasm of breast (principal)
CPT/HCPCS: 77063; 77067

== ENCOUNTER → 2024-06-08 10:08 | Outpatient (CLI) | payer MEDICARE, OTHER, SELFPAY ==
[2022-01-14 22:34] VITALS: BMI 23.6
[2024-06-08 12:09] LABS: Hemoglobin A1C% w Est Avg Glu 5.4 % (4.0-6.0)
== END ==
PROVIDERS: PCP Registered Nurse Diabetes Educator; Referring Provider Registered Nurse Diabetes Educator; Visit Provider Registered Nurse Diabetes Educator
DX: E11.9 Type 2 diabetes mellitus without complications (principal)
CPT/HCPCS: 36415; 83036

== ENCOUNTER → 2024-10-03 12:53 | Outpatient (CLI) | payer MEDICARE, OTHER, SELFPAY ==
[2022-01-14 22:34] VITALS: BMI 23.6
--- NOTE | 2024-10-03 12:56 | DI.RAD.S_ITS ---
PROCEDURE: XR DEXA AXIAL SKELETON INDICATIONS: Re eval COMPARISON: [facility], CR, XR DEXA AXIAL SKELETON, 09/29/2022, 13:10. [facility], CR, XR DEXA AXIAL SKELETON, 08/27/2020, 11:04. FINDINGS: Lumbar Spine: Bone mineral density 0.971 g/cm2, T score -0.7, previously-1.0. Statistically improved by 4%. Left Femoral Neck: Bone mineral density of 0.598 g/cm2, T score -2.3. Left Hip: Bone mineral density 0.692 g/cm2, T score -2.1, unchanged. Fracture Risk Calculation (when applicable): Secondary osteoporosis, alcohol use reported 10-year fracture risk of a major osteoporotic fracture 16 percent and of a hip fracture 4.3 percent. (T score greater or equal to -1.0 to: NORMAL) (T score from -1.1 to -2.4: OSTEOPENIA) (T score less than or equal to -2.5: OSTEOPOROSIS) IMPRESSION: Osteopenia. Statistically improved in the lumbar spine and statistically unchanged in the left hip. Follow-up guidelines as follows: Osteoporosis: Consider a repeat DEXA and Vertebral Fracture Assessment (VFA) exam in 2 years or sooner if medically necessary, to reassess this patient's status. Osteopenia: Consider a repeat DEXA in 2-3 years to reassess this patient's status, or if there is a new clinical indication. Normal: Consider a repeat DEXA in 5 years or sooner, or if there is a new clinical indication. All treatment decisions require clinical judgment and consideration of individual patient factors, including patient preferences, comorbidities, previous drug use, risk factors not captured in the FRAX model (e.g., frailty, falls, vitamin D deficiency, increased bone turnover, interval significant decline in bone density ) and possible under- or over-estimation of fracture risk by FRAX. In addition, the NOF Guide recommends that FDA-approved medical therapies be considered in postmenopausal women and men age >= 50 years with a: * Hip or vertebral (clinical or morphometric) fracture * T-score of <=-2.5 at the spine or hip * Ten-year fracture probability by FRAX of >= 3% for hip fracture or >=20% for major osteoporotic fracture. Dictated by: Marck Lino M.D. on 10/04/2024 at 9:00 Approved by: Marck Lino M.D. on 10/04/2024 at 9:02
== END ==
PROVIDERS: PCP Registered Nurse Diabetes Educator; Referring Provider Registered Nurse Diabetes Educator; Visit Provider Registered Nurse Diabetes Educator
DX: M81.0 Age-related osteoporosis without current pathological fracture (principal)
CPT/HCPCS: 77080

== ENCOUNTER → 2024-10-05 09:28 | Outpatient (CLI) | payer MEDICARE, OTHER, SELFPAY ==
[2022-01-14 22:34] VITALS: BMI 23.6
[2024-10-05 10:05] LABS: Hematocrit 38.4 % (36-46); Hemoglobin 13.5 g/dL (12.0-16.0); Mean Corpuscular HGB Conc 35.3 % (30-36); Mean Corpuscular Hemoglobin 29.1 PG (26-34); Mean Corpuscular Volume 82.5 fL (80-100); Platelet Count 404 X10^3/uL (150-400); Red Blood Cell Count 4.65 X10^6/uL (4.0-5.2); Red Cell Distribution Width 14.5 % (11.6-14.8)
[2024-10-05 10:22] LABS: Alanine Aminotransferase 29 IU/L (<35); Albumin 4.5 g/dL (3.5-5.0); Albumin Globulin Ratio 1.6 (1.0-2.8); Alkaline Phosphatase 75 U/L (38-126); Aspartate Aminotransferase 31 IU/L (14-36); BUN Creatinine Ratio 28.6 (6-22); Bilirubin Total 0.5 mg/dL (0.2-1.3); Blood Urea Nitrogen 20 mg/dL (7-17); Calcium 9.7 mg/dL (8.4-10.2); Carbon Dioxide 28 mmol/L (22-32); Chloride 103 mmol/L (98-107); Cholesterol 157 mg/dL (140-199); Estimated Glomerular Filt Rate > 60 mL/min (>60); Globulin 2.9 g/dL (1.7-4.1); Glucose 133 mg/dL (70-99); HDL Cholesterol 37 mg/dL (40-60); HEMOLYSIS < 15 (0-50); LDL Cholesterol Calculated 88 mg/dL (<100); Potassium 4.5 mmol/L (3.4-5.1); Sodium 141 mmol/L (137-145); Total Protein 7.4 g/dL (6.3-8.2); Triglycerides 162 mg/dL (35-150)
[2024-10-05 10:27] LABS: Creatinine Urine Random 227.28 mg/dL
[2024-10-05 10:27] LABS: Hemoglobin A1C% w Est Avg Glu 5.6 % (4.0-6.0)
[2024-10-05 10:32] LABS: Microalbumin Urine Random 1.5 mg/dL (0-1.6)
[2024-10-05 10:53] LABS: TSH w/ Reflex to FT4 1.35 uIU/mL (0.47-4.68)
== END ==
PROVIDERS: PCP Registered Nurse Diabetes Educator; Referring Provider Registered Nurse Diabetes Educator; Visit Provider Registered Nurse Diabetes Educator
DX: E78.5 Hyperlipidemia, unspecified (principal); E11.9 Type 2 diabetes mellitus without complications
CPT/HCPCS: 36415; 80053; 80061; 82043; 82570; 83036; 84443; 85027